=== PATIENT | male | born 1930 | race Caucasian/White ===

== ENCOUNTER 2017-03-17 02:39 | Inpatient (IN) | payer MEDICARE, BC ==
[2017-03-17] MEDS ORDERED: Albuterol Sulfate 2.5 mg/3 ml Neb ONE (03:27)
[2017-03-17] MEDS ORDERED: Doxycycline 100 MG CAP PO SCH (03:45)
[2017-03-17 04:19] LABS: Troponin I 0.034 ng/mL (< 0.028)
[2017-03-17 07:49] LABS: Troponin I Less than 0.010 ng/mL (< 0.028)
[2017-03-17] MEDS ORDERED: Ondansetron ODT 4 MG TAB PO PRN (08:23)
[2017-03-17] MEDS ORDERED: Ondansetron HCl/PF 4 MG/2 ML Vial IVP PRN (08:23)
[2017-03-17] MEDS ORDERED: Bisacodyl 5 MG TAB PO PRN (08:23)
[2017-03-17] MEDS ORDERED: Carbidopa/Levodopa 25-100 mg Tablet PO SCH (09:00)
--- NOTE | 2017-03-17 11:07 | HP ---
PRIMARY CARE PHYSICIAN: Niles Irizarry M.D. PRIMARY ASSET ANALYST: Seymour Milner M.D. PRIMARY BORDER PATROL AGENT: Cas Win M.D. CHIEF COMPLAINT: Coughing, wheezing, shortness of breath. HISTORY OF PRESENT ILLNESS: This is an 87-year-old man with a history of COPD and asthma, who takes nebs daily. He reports that 5 days ago he developed a runny nose followed by dry cough, congestion , and shortness of breath and wheezing. He continues to take his breathing treatments. He did go t o the emergency room and was given some antibiotics and steroids. The patient continued to worsen a nd returned to the emergency room with severe wheezing and increased work of breathing and mild hypo emily down to 91% on room air. The patient was given steroids, Rocephin and IV steroids and nebulizin g treatment in the [facility] and he was transferred here for admission. Here, the pat ient received doxycycline and continued nebulizing treatments. He reports feeling better, but still with significant difficulty breathing, wheezing and coughing. The patient denies any chest pain or other associated symptoms. The patient did have a chest x-ray done in the [facility] with some question of a small pleural effusion and the possibility of pneumonia was raised; however, he has a normal white blood cell count and on radiology overread of the chest x-ray shows no change s, no obvious pleural effusion, some question of possible atelectasis in the left base, but this is chronic. PAST MEDICAL HISTORY: 1. Atrial fibrillation on Xarelto. 2. Hypertension. 3. Dyslipidemia. 4. Coronary artery disease. 5. Diabetes mellitus type 2. 6. COPD/asthma. 7. Vertigo. 8. Gastroesophageal reflux disease. PAST SURGICAL HISTORY: 1. Arthroscopic left knee surgery. 2. Right ear drum implant. 3. Rhinoplasty. 4. Pacemaker placement. 5. Cholecystectomy. SOCIAL HISTORY: The patient lives with his in [place]. He has no history of tobacco, alcohol or illicit drug use. FAMILY HISTORY: Negative for coronary artery disease or stroke in the family. ALLERGIES: 1. CELEBREX. 2. PEANUT. 3. SOY. CURRENT MEDICATIONS: 1. Amlodipine 5 mg daily. 2. Metoprolol 50 mg daily. 3. Metformin 500 mg daily. 4. Protonix 40 mg daily. 5. Xarelto 20 mg daily. 6. Multaq 400 mg twice a day. 7. Zetia 5 mg daily. 8. Aspirin 81 mg daily. 9. Livalo 2 mg daily. 10. Duloxetine 60 mg daily. 11. Symbicort 160/4.5 mcg 1 inhalation in the morning and at night. 12. Albuterol as needed. 13. Lubricant eyedrops 0.5% solution as needed. 14. Gummy multivitamins 2 each night. 15. Probiotic gummy 2 each morning. 16. Rytary 23.75/95 mg 3 capsules 3 times a day. REVIEW OF SYSTEMS: Constitutional: No fevers, no chills, no weight changes. Eyes: No double visi on or blurred vision. ENT: Clear drainage from the nose with nasal congestion, no sore throat. Ca rdiovascular: No chest pain, no palpitations, no racing heart. Pulmonary: See HPI. Gastrointest inal: No abdominal pain, no nausea or vomiting, no diarrhea or constipation. Genitourinary: No dy suria or hematuria. Musculoskeletal: No muscle aches or joint pains. Skin: No rashes or lesions that he has noticed. Neurologic: No numbness, tingling or focal weakness. PHYSICAL EXAMINATION: VITAL SIGNS: Blood pressure 158/84, pulse 82, respirations 22, temperature 97.5, O2 sat 96% on 2 li ters of oxygen. GENERAL: This is a well-developed, well-nourished elderly white male in no apparent distress. HEENT: Pupils equal, round, and reactive to light. Oropharynx clear without lesions, erythema or e xudate. NECK: Supple, no lymphadenopathy, no thyroid nodules or enlargement, no JVD. HEART: Regular rate and rhythm, no murmurs, rubs or gallops. LUNGS: Diffuse expiratory wheezes with mild increased work of breathing and significant dry cough, no focal areas of decreased breath sounds or rhonchi or other evidence of pneumonia. ABDOMEN: Nontender, nondistended, normoactive bowel sounds, no hepatosplenomegaly or other masses. It is soft to palpation. EXTREMITIES: No clubbing, cyanosis or edema. SKIN: No rashes or other lesions noted. NEUROLOGIC: The patient does have a bit of a resting tremor. He has intact strength in all extremi ties and has no facial droop. PSYCHIATRIC: Alert and oriented x3, normal mood and affect, normal insight and judgment. LABORATORY DATA: CBC within normal limits with no leukocytosis. Complete metabolic panel is within normal limits except for glucose of 147. His initial CK-MB was elevated at 7.6, troponin was daly l. A repeat troponin was 0.034, but the third troponin was again negative. Lactic acid normal at 2 .0. Chest x-ray: I did review the chest x-ray done in the emergency room along with the radiologis t's report. There is no significant change from previous chest x-ray. There is some minimal left b asilar streaking consistent with atelectasis. No significant evidence for effusion or pneumonia at this time. EKG: I did review the EKG done in the emergency room, it does show sequential or dual c hamber electronic pacer signal with no significant abnormalities. ASSESSMENT AND PLAN: 1. Chronic obstructive pulmonary disease exacerbation. We will continue IV steroids, doxycycline a nd neb treatments scheduled with p.r.n. in between. I suspect the patient will need to be hospitali zed for at least two midnights to get the chronic obstructive pulmonary disease under control, so we are putting him inpatient status. The patient does not appear to have a pneumonia at this time, so we will discontinue the Rocephin. 2. Hypertension. We will resume the patient's home medications. 3. History of coronary artery disease. Patient did have a single indeterminate troponin that resol ves the second time. No symptoms consistent with current coronary artery disease or active coronary artery disease. We will just continue his home cholesterol and blood thinner medications. 4. Atrial fibrillation with a pacemaker. We will continue Xarelto. 4. Gastrointestinal prophylaxis with history of gastroesophageal reflux disease. We will resume july sandoval's Protonix. 5. Parkinson's disease. We will resume patient's levodopa and carbidopa. 6. Code status. I did discuss with the patient, he is a FULL CODE. Should he be incapacitated, hi s medical decision maker will be his , Elba Peñaloza.
[2017-03-17 12:09] VITALS: BMI 29.8
[2017-03-17] MEDS: Amlodipine 5 MG TAB PO SCH (12:47)
[2017-03-17] MEDS: Carbidopa/Levodopa 25-100 mg Tablet PO SCH ×3 (12:47→22:18)
[2017-03-17] MEDS: Docusate 100 MG CAP PO SCH ×2 (12:47→22:12)
[2017-03-17] MEDS ORDERED: Albuterol Sulfate 2.5 mg/3 ml Neb NEB SCH (13:00)
[2017-03-17] MEDS: Dronedarone HCl 400 MG TAB PO SCH (17:05)
[2017-03-17] MEDS: Rivaroxaban 10 MG TAB PO SCH (17:06)
[2017-03-17] MEDS ORDERED: Furosemide 40 MG/4 ML VIAL SLOW IVP SCH (18:30)
[2017-03-17] MEDS ORDERED: HumaLOG 300 UNITS/3 ML VIAL SC PRN (19:47)
[2017-03-17] MEDS ORDERED: Dextrose 5% in Water 1,000 ML IV PRN (19:47)
[2017-03-17] MEDS ORDERED: Dextrose 50% Abboject 50 ML SYRINGE IVP PRN (19:47)
[2017-03-17] MEDS: Doxycycline 100 MG CAP PO SCH (22:11)
[2017-03-17] MEDS: Ezetimibe 10 MG TAB PO SCH (22:12)
[2017-03-17] MEDS: Atorvastatin Calcium 10 MG TAB PO SCH (22:13)
[2017-03-17] MEDS: DULoxetine 60 MG CAP PO SCH (22:14)
[2017-03-18 05:09] LABS: #Lymphocytes 0.8 thou/uL (1.20-3.40); #Monocytes 0.7 thou/uL (0.11-0.59); #Neutrophils 6.7 thou/uL (1.40-6.50); %Eosinophils 0.2 % (0.0-10.0); %Lymphocytes 9.8 % (21.0-51.0); %Monocytes 8.3 % (0.0-10.0); Hematocrit 41.3 % (42.0-52.0); Mean Platelet Volume 7.3 fL (7.4-10.4); White Blood Cell (WBC) Count 8.2 thou/uL (4.8-10.8)
[2017-03-18 05:34] LABS: Anion Gap 14 mmol/L (10-20); BUN (Urea Nitrogen) 14 mg/dL (8.4-25.7); Calc. Creatinine Clearance 93 mL/min (70-130); Calcium 9.1 mg/dL (7.8-10.44); Carbon Dioxide 25 mmol/L (23-31); Chloride 99 mmol/L (98-107); Estimated GFR-MDRD Greater than 90
--- NOTE | 2017-03-18 08:09 | PDOC.PN ---
- Subjective Encounter Start Date: 03/18/17 Encounter Start Time: 08:40 Subjective: SOB improved, cough better. Still on a little O2. - Objective Resuscitation Status: Resuscitation Status FULL:Full Resuscitation MAR Reviewed: Yes Vital Signs & Weight: Vital Signs (12 hours) Temp Pulse Resp BP Pulse Ox 03/18/17 07:28 95 03/18/17 07:26 76 20 95 03/18/17 04:00 97.9 F 83 20 133/62 93 L 03/18/17 01:15 83 16 97 03/18/17 00:35 96 03/18/17 00:00 97.3 F L 84 18 127/59 L 95 03/17/17 22:02 97.8 F 94 20 122/64 95 Weight Weight 188 lb 6.4 oz I&O: 03/17/17 03/18/17 03/19/17 06:59 06:59 06:59 Intake Total 1210 Output Total 0 Balance -840 Result Diagrams: 03/18/17 04:54 03/18/17 04:54 Additional Labs: Accuchecks 03/18/17 03/17/17 03/17/17 06:11 22:09 20:54 POC Glucose 183 H 281 H 323 H Phys Exam - Physical Examination Constitutional: NAD HEENT: moist MMs Respiratory: no rales, no rhonchi wheezing improved, still some bilateral upper lobes, good air movement Cardiovascular: RRR, no significant murmur Gastrointestinal: soft, positive bowel sounds Musculoskeletal: no edema Neurological: non-focal, moves all 4 limbs Psychiatric: normal affect, A&O x 3 Dx/Plan (1) COPD exacerbation Code(s): J44.1 - CHRONIC OBSTRUCTIVE PULMONARY DISEASE W (ACUTE) EXACERBATION Status: Acute Comment: On nebs, steroids, antibiotics (2) CAD (coronary artery disease) Code(s): I25.10 - ATHSCL HEART DISEASE OF [place] CORONARY ARTERY W/O ANG PCTRS Status: Chronic (3) Chronic atrial fibrillation Code(s): I48.2 - CHRONIC ATRIAL FIBRILLATION Status: Chronic Comment: continue xarelto (4) Dyslipidemia Code(s): E78.5 - HYPERLIPIDEMIA, UNSPECIFIED Status: Chronic (5) Hypertension Code(s): I10 - ESSENTIAL (PRIMARY) HYPERTENSION Status: Chronic Comment: controlled - Plan cont current plan of care, continue antibiotics, respiratory therapy, out of bed /ambulate, DVT proph w/lovenox, DVT proph w/SCDs transition to oral steroids, try and wean O2, likely home tomorrow. * . - Discharge Encounter end time: 08:55
[2017-03-18] MEDS: Dronedarone HCl 400 MG TAB PO SCH ×2 (08:24→15:52)
[2017-03-18] MEDS: metFORMIN 500 MG TAB PO SCH (08:24)
[2017-03-18] MEDS: Docusate 100 MG CAP PO SCH ×2 (08:28→20:31)
[2017-03-18] MEDS: Amlodipine 5 MG TAB PO SCH (08:28)
[2017-03-18] MEDS: Carbidopa/Levodopa 25-100 mg Tablet PO SCH ×3 (08:28→20:31)
[2017-03-18] MEDS: Doxycycline 100 MG CAP PO SCH ×2 (08:28→20:31)
[2017-03-18] MEDS: predniSONE 20 MG TAB PO SCH (08:28)
[2017-03-18] MEDS: Rivaroxaban 10 MG TAB PO SCH (17:49)
[2017-03-18] MEDS: HumaLOG 300 UNITS/3 ML VIAL SC PRN (17:49)
[2017-03-18] MEDS: Atorvastatin Calcium 10 MG TAB PO SCH (20:31)
[2017-03-18] MEDS: Ezetimibe 10 MG TAB PO SCH (20:31)
[2017-03-18] MEDS: DULoxetine 60 MG CAP PO SCH (20:31)
[2017-03-19] MEDS: Dronedarone HCl 400 MG TAB PO SCH ×2 (08:24→17:43)
[2017-03-19] MEDS: Amlodipine 5 MG TAB PO SCH ×2 (08:24→09:47)
[2017-03-19] MEDS: Doxycycline 100 MG CAP PO SCH ×2 (08:24→21:04)
[2017-03-19] MEDS: Carbidopa/Levodopa 25-100 mg Tablet PO SCH (08:24)
[2017-03-19] MEDS: metFORMIN 500 MG TAB PO SCH (08:24)
[2017-03-19] MEDS: Docusate 100 MG CAP PO SCH ×2 (08:24→21:04)
[2017-03-19] MEDS: predniSONE 20 MG TAB PO SCH (08:24)
[2017-03-19] MEDS ORDERED: CARBOXYMETHYLCELLULOSE SODIUM EA EYE PRN (08:28)
[2017-03-19 08:57] LABS: #Eosinphils 0.1 thou/uL (0.0-0.7); #Lymphocytes 1.5 thou/uL (1.20-3.40); #Monocytes 0.7 thou/uL (0.11-0.59); #Neutrophils 4.1 thou/uL (1.40-6.50); %Basophils 0.3 % (0.0-1.0); %Eosinophils 1.2 % (0.0-10.0); %Lymphocytes 23.8 % (21.0-51.0); %Monocytes 10.6 % (0.0-10.0); Hematocrit 46.8 % (42.0-52.0); Mean Platelet Volume 7.3 fL (7.4-10.4); Red Blood Cell (RBC) Count 4.72 mill/uL (4.70-6.10); White Blood Cell (WBC) Count 6.4 thou/uL (4.8-10.8)
[2017-03-19] MEDS ORDERED: Artificial Tears 18 DROP/0.9 ML EA EYE PRN (08:57)
[2017-03-19] MEDS ORDERED: (Inulin/Chromium Picolinate [Fiber Gummies] 1 EACH) PO SCH (09:00)
[2017-03-19] MEDS ORDERED: Non-Formulary Item 1 EACH (Pitavastatin Calcium 2 MG) PO SCH (09:00)
[2017-03-19] MEDS ORDERED: Benzonatate 100 MG CAP PO PRN (09:00)
[2017-03-19] MEDS ORDERED: Non-Formulary Item 1 EACH (Budesonide-Formoterol [Symbicort 160-4.5] 1 PUFF) INH SCH (09:00)
[2017-03-19 09:08] LABS: Anion Gap 12 mmol/L (10-20); BUN (Urea Nitrogen) 16 mg/dL (8.4-25.7); Calc. Creatinine Clearance 92 mL/min (70-130); Calcium 9.4 mg/dL (7.8-10.44); Carbon Dioxide 29 mmol/L (23-31); Chloride 99 mmol/L (98-107); Estimated GFR-MDRD Greater than 90
[2017-03-19] MEDS: HumaLOG 300 UNITS/3 ML VIAL SC PRN ×2 (12:21→17:45)
--- NOTE | 2017-03-19 13:21 | HP ---
DATE OF SERVICE: 03/18/2017 SERVICE: Pulmonary Medicine. INTERVAL HISTORY: The patient is doing outstanding from cardiovascular and respiratory standpoint. His breathing is much improved with a couple doses of Lasix. He now understands that he cannot have salt moving and his previous doses moving forward. PAST MEDICAL HISTORY: 1. Atrial fibrillation, permanent. 2. Hypertension. 3. Dyslipidemia. 4. Coronary artery disease. 5. Type 2 diabetes mellitus. 6. Chronic obstructive pulmonary disease. 7. Gastroesophageal reflux disease. 8. Parkinson's disease. PAST SURGICAL HISTORY: 1. Left knee surgery. 2. Right eardrum surgery. 3. Rhinoplasty. 4. Pacemaker placement. 5. Cholecystectomy. SOCIAL HISTORY: Negative for tobacco, alcohol or illicit drug use. He has no exposure to chemicals, dusts, asbestos, or tuberculosis. He lives with his in [place]. FAMILY HISTORY: Noncontributory. ALLERGIES: CELEBREX, PEANUT, SOY. MEDICATIONS: List of inpatient medications were reviewed. A couple of small updates were made at this time. REVIEW OF SYSTEMS: General, head, ears, eyes, nose, throat, cardiovascular, respiratory, GI, , musculoskeletal, neurologic and skin is negative except as mentioned in the HPI. PHYSICAL EXAMINATION: VITAL SIGNS: Afebrile, pulse 81, blood pressure 165/74, respirations 20, saturation 95% on 2 liters nasal cannula. GENERAL: The patient is awake, alert, no apparent distress. LUNGS: Excellent air entry. Dependent crackles are minimal. There is not much in the way of a prolonged expiratory phase or wheezing this morning. HEART: Normal rate, regular. ABDOMEN: Soft, nontender, nondistended. Bowel sounds positive. MUSCULOSKELETAL: No cyanosis or clubbing. No pitting in the bilateral lower extremities. NEUROLOGIC: Grossly nonfocal. LABORATORY DATA: WBC 8.2, hemoglobin 13.4, platelets 167,000. Neutrophil count is 82%. Basic metabolic profile is completely unremarkable. Glucose ranges from 155-229. ASSESSMENT: 1. Acute hypoxic respiratory failure. 2. Chronic obstructive pulmonary disease with acute exacerbation. 3. 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 4. Excessive salt intake. 5. Parkinson's disease. PLAN: We will focus our efforts on mobilizing the patient. We will wean oxygen as tolerated. He will need to stop salt moving forward. We will continue our antibiotics, steroids, nebulized medications. If he remains stable for an additional 24-48 hours, he can be considered for discharge home. I will continue to follow while he remains in house. AYAAN
[2017-03-19] MEDS ORDERED: Furosemide 40 MG/4 ML VIAL SLOW IVP SCH (14:00)
--- NOTE | 2017-03-19 14:07 | PRG ---
DATE OF SERVICE: 03/19/2017 SERVICE: Pulmonary Medicine. INTERVAL HISTORY: The patient is doing really quite well from a cardiovascular and respiratory stand point. He is on room air now. He denies any current fevers, chills, nausea, vomiting or chest disco mfort. His breathing much improved. He is up walking in the hallway today without difficulty. He e ssentially feels like he has returned to his usual state of health. PHYSICAL EXAMINATION: VITAL SIGNS: Afebrile, pulse 84, blood pressure 165/77, respirations 18, saturation 93% on room air. GENERAL: Patient is awake, alert, in no apparent distress. LUNGS: Excellent air entry. Minimal dependent crackles are present. There is slightly prolonged ex piratory phase, but there is now excellent air entry. No wheezing is appreciated. HEART: Normal rate and regular. ABDOMEN: Soft, nontender, and nondistended. Bowel sounds positive. MUSCULOSKELETAL: No cyanosis or clubbing. Trace pitting in the bilateral lower extremities. NEUROLOGIC: Grossly nonfocal. LABORATORY DATA: WBC 6.4, hemoglobin 14.8, and platelets 177,000. Basic metabolic profile is essent ially unremarkable with potassium of 3.8. ASSESSMENT: 1. Acute hypoxic respiratory failure, resolved. 2. 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 3. Atrial fibrillation, permanent. 4. Chronic obstructive pulmonary disease with acute exacerbation. 5. Excessive salt intake. 6. Parkinson's disease. PLAN: I will continue to diurese the patient to euvolemia. The patient's has requested Cardiol clarissa consultation. As such, I will put that in. From my perspective, if he is stable by tomorrow higinio joya and off of oxygen, he can be considered for transition home. I will provide him with another do se of Lasix in the morning. We will repeat electrolytes once again. He had a recent echocardiogram, I do not see a point repeating one given that he had negative troponin.
--- NOTE | 2017-03-19 14:08 | PDOC.PN ---
- Subjective Encounter Start Date: 03/19/17 Encounter Start Time: 07:40 Pt seen for followup re: COPD exacerbation. Denies chest pain, fever. Occ cough, minimal sputum. Shortness of breath is better. - Objective Resuscitation Status: Resuscitation Status FULL:Full Resuscitation MAR Reviewed: Yes Vital Signs & Weight: Vital Signs (12 hours) Temp Pulse Pulse Pulse Pulse Resp BP 03/19/17 11:50 97.2 F L 84 18 03/19/17 11:42 87 85 75 165/77 H 03/19/17 08:40 59 L 86 149/81 H 03/19/17 08:00 97.7 F 92 18 03/19/17 07:50 97.7 F 92 18 03/19/17 07:14 03/19/17 07:13 72 16 03/19/17 04:44 03/19/17 04:10 97.8 F 73 18 BP BP BP Pulse Ox Pulse Ox Pulse Ox Pulse Ox 03/19/17 11:50 125/64 93 L 03/19/17 11:42 125/64 95 95 92 L 03/19/17 08:40 149/76 H 03/19/17 08:00 92 L 03/19/17 07:50 127/68 92 L 03/19/17 07:14 96 03/19/17 07:13 95 03/19/17 04:44 95 03/19/17 04:10 147/76 H 95 Weight Weight 189 lb 4.8 oz I&O: 03/18/17 03/19/17 03/20/17 06:59 06:59 06:59 Intake Total 1210 2400 Output Total 2050 2560 Balance -840 -160 Result Diagrams: 03/19/17 08:36 03/19/17 08:36 Additional Labs: Accuchecks 03/19/17 03/19/17 03/18/17 12:04 05:25 20:28 POC Glucose 229 H 155 H 152 H 03/18/17 16:48 POC Glucose 221 H EKG Reviewed by me: Yes (Tele: electronic AV paced) Phys Exam - Physical Examination Constitutional: NAD HEENT: moist MMs, oral pharynx no lesions Neck: supple Respiratory: wheezing present Cardiovascular: RRR, no rub Gastrointestinal: soft, non-tender Musculoskeletal: pulses present, edema present Neurological: moves all 4 limbs Psychiatric: normal affect Skin: no rash Dx/Plan (1) COPD exacerbation Code(s): J44.1 - CHRONIC OBSTRUCTIVE PULMONARY DISEASE W (ACUTE) EXACERBATION Status: Acute (2) CAD (coronary artery disease) Code(s): I25.10 - ATHSCL HEART DISEASE OF [place] CORONARY ARTERY W/O ANG PCTRS Status: Chronic (3) Chronic atrial fibrillation Code(s): I48.2 - CHRONIC ATRIAL FIBRILLATION Status: Chronic (4) Dyslipidemia Code(s): E78.5 - HYPERLIPIDEMIA, UNSPECIFIED Status: Chronic (5) H/O: CVA (cerebrovascular accident) Code(s): Z86.73 - PRSNL HX OF TIA (TIA), AND CEREB INFRC W/O RESID DEFICITS Status: Chronic (6) Hypertension Code(s): I10 - ESSENTIAL (PRIMARY) HYPERTENSION Status: Chronic - Plan plan discussed w/ family, continue antibiotics, PT/OT, out of bed/ambulate, DVT proph w/SCDs * . Continue steroids, bronchodilators. Pt still needing oxygen, will try to wean him off. Resume metoprolol. Discussed with pt and family, updated them. Likely home 1-2 days. Review of Systems - Review of Systems Constitutional: negative: Fever, Chills, Sweats, Weakness, Malaise Respiratory: Cough, Shortness of Breath, SOB with Excertion, Sputum. negative: Dry, Hemoptysis, Pleuritic Pain, Wheezing Cardiovascular: negative: Chest Pain, Palpitations, Orthopnea, Paroxysmal Noc. Dyspnea, Edema, Light Headedness - Medications/Allergies Allergies/Adverse Reactions: Allergies Allergy/AdvReac Type Severity Reaction Status Date / Time celecoxib [From Celebrex] Allergy Verified 03/17/17 12:13 peanut Allergy Verified 03/17/17 12:13 soy Allergy Verified 03/17/17 12:13 Medications: Current Medications Albuterol/Ipratropium (Duoneb) 3 ml NEB [id number] PRN PRN Reason: SOB &/or Wheezing Albuterol/Ipratropium (Duoneb) 3 ml NEB [id number] VIPUL Last Admin: 03/19/17 07:13 Dose: 3 ml Amlodipine Besylate (Norvasc) 5 mg PO DAILY VIPUL Last Admin: 03/19/17 09:47 Dose: Not Given Artificial Tears (Tears Naturale) 0 drop EA EYE ASDIR PRN PRN Reason: DRY EYES Aspirin (Aspirin Chewable) 81 mg PO HS [facility] Atorvastatin Calcium (Lipitor) 10 mg PO HS [facility] Last Admin: 03/18/17 20:31 Dose: 10 mg Bisacodyl (Dulcolax) 10 mg PO DAILYPRN PRN PRN Reason: Constipation Dextrose/Water (Dextrose 50%) 25 gm IVP PRN PRN PRN Reason: HYPOGLYCEMIA PROTOCOL Docusate Sodium (Colace) 100 mg PO BID [facility] Last Admin: 03/19/17 08:24 Dose: 100 mg Doxycycline Hyclate (Vibramycin) 100 mg PO BID [facility] Last Admin: 03/19/17 08:24 Dose: 100 mg Dronedarone (Multaq) 400 mg PO BID-WM [facility] Duloxetine HCl (Cymbalta) 60 mg PO HS [facility] Ezetimibe (Zetia) 5 mg PO HS [facility] Furosemide (Lasix) 40 mg SLOW IVP 1400 VIPUL Stop: 03/19/17 17:00 Furosemide (Lasix) 40 mg PO DAILY-AC [facility] Glucagon (Glucagon) 1 mg IM PRN PRN PRN Reason: HYPOGLYCEMIA PROTOCOL Dextrose/Water (D5w) 1,000 mls @ 0 mls/hr IV INF PRN; As Directed PRN Reason: HYPOGLYCEMIA PROTOCOL Insulin Human Lispro (Humalog) 0 units SC .MODERATE SLIDING SC PRN; Protocol PRN Reason: MODERATE SLIDING SCALE Last Admin: 03/19/17 12:21 Dose: 4 unit Insulin Human Lispro (Humalog) 0 units SC .BEDTIME SLIDING SC PRN; Protocol PRN Reason: BEDTIME SLIDING SCALE Last Admin: 03/17/17 22:10 Dose: 3 unit Iron/Minerals/Multivitamins (Theragran M) 1 tab PO HS [facility] Metformin HCl (Glucophage) 500 mg PO QAM-WM [facility] Metoprolol Tartrate (Lopressor) 50 mg PO QPM [facility] Mometasone Furoate/Formoterol Fumar (Dulera 200 Mcg/5 Mcg Inhaler) 1 puff INH BID-RT [facility] Ondansetron HCl (Zofran Odt) 4 mg PO Q6H PRN PRN Reason: Nausea/Vomiting Ondansetron HCl (Zofran) 4 mg IVP Q6H PRN PRN Reason: Nausea/Vomiting Pantoprazole Sodium (Protonix) 40 mg PO DAILY [facility] Last Admin: 03/19/17 09:52 Dose: 40 mg (Carbidopa/Levodopa [Rytary Er] 1 Capsule) 23.75/95 0 each PO TID [facility] Prednisone (Prednisone) 40 mg PO QAM-[facility] Stop: 03/22/17 08:01 Last Admin: 03/19/17 08:24 Dose: 40 mg Rivaroxaban (Xarelto) 20 mg PO QPM-[facility] Sodium Chloride (Flush - Normal Saline) 10 ml IVF Q12HR [facility] Last Admin: 03/19/17 08:25 Dose: 10 ml Sodium Chloride (Flush - Normal Saline) 10 ml IVF PRN PRN PRN Reason: Saline Flush
[2017-03-19] MEDS: CARBIDOPA PO SCH ×2 (14:28→21:13)
[2017-03-19] MEDS: LEVODOPA PO SCH ×2 (14:28→21:13)
[2017-03-19] MEDS ORDERED: Non-Formulary Item 1 EACH (Rivaroxaban [Xarelto] 20 MG) PO SCH (17:00)
[2017-03-19] MEDS ORDERED: Rivaroxaban 10 MG TAB PO SCH (17:00)
--- NOTE | 2017-03-19 18:08 | CON ---
DATE OF CONSULTATION: 03/19/2017 REASON FOR CONSULTATION: Diastolic dysfunction and atrial fibrillation. PRIMARY EDUCATION TEACHER: Dr. Seymour Milner M.D. HISTORY OF PRESENT ILLNESS: Mr. Peñaloza is a very pleasant 87-year-old white gentleman, who comes to the hospital for shortness of breath. He was evaluated and diagnosed with COPD exacerbation and was started on steroids, he is doing much better. He also had a little bit of pulmonary edema and receiv ed IV doses of Lasix and diuresed and his breathing is much better now. Cardiology being consulted f or evaluation of heart failure. He had an echocardiogram done in the office by Dr. Milner in [facility] this year. He had an EF of 50% to 55% with diastolic dysfunction. He also has a history of pa roxysmal atrial fibrillation. He is on Multaq for this as well as Xarelto for stroke prophylaxis. Ruy benton is currently in AV paced rhythm, so he is not in atrial fibrillation. PAST MEDICAL HISTORY: 1. Paroxysmal atrial fibrillation. 2. Hypertension. 3. Hyperlipidemia. 4. Coronary artery disease, status post angioplasty in the . 5. LAD. 6. Type 2 diabetes. 7. COPD. 8. Vertigo. 9. GERD. 10. Diastolic dysfunction. PAST SURGICAL HISTORY: 1. Left knee surgery. 2. Right eardrum implant. 3. Rhinoplasty. 4. Pacemaker placed. 5. Cholecystectomy. SOCIAL HISTORY: No alcohol, tobacco, or drugs. FAMILY HISTORY: Noncontributory. ALLERGIES: CELEBREX, PEANUT and SOY. OUTPATIENT MEDICATIONS: Include, 1. Amlodipine 5 mg a day. 2. Metoprolol 50 mg a day. 3. Metformin 500 mg a day. 4. Protonix. 5. Xarelto 20 mg a day. 6. Multaq 400 mg twice a day. 7. Zetia 5 mg a day. 8. Aspirin 81 a day. 9. Livalo 2 mg a day 10. Duloxetine. 11. Symbicort. 12. Albuterol. 13. Lubricant eye drops. 14. Multivitamins. 15. Probiotics. 16. Rytary. REVIEW OF SYSTEMS: A 12-point review of systems was done and is all negative unless stated in the hi story of present illness. PHYSICAL EXAMINATION: VITAL SIGNS: Temperature 97.2, pulse 84, respiratory rate 18, satting 92% on room air, and blood pre ssure 125/64. GENERAL: Awake, alert, oriented x3, in no distress. HEENT: Normocephalic, atraumatic. NECK: Supple. LUNGS: Have reduced breath sounds bilaterally, but good air movement. CARDIOVASCULAR: S1 and S2. No S3 or S4. No murmurs. No rubs. ABDOMEN: Soft. EXTREMITIES: Trace edema. SKIN: Warm and dry. LABORATORY WORK: Reviewed. CBC with a white count of 8, hemoglobin 13, hematocrit 41, and platelet count of 167. Chemistry with a normal BUN and creatinine. Calcium 9.4. Troponin was negative x2. EKG was reviewed. ASSESSMENT AND PLAN: 1. Chronic obstructive pulmonary disease with acute exacerbation. 2. Acute diastolic heart failure, improved after IV diuresis. 3. Paroxysmal atrial fibrillation, currently in AV paced rhythm. PLAN: 1. Continue Multaq and Xarelto for both paroxysmal atrial fibrillation and stroke prophylaxis. Curr ently, not in atrial fibrillation. 2. Agree with switching his Lasix to p.o. as he probably has already diuresed and is feeling much be tter from his fluid accumulation from his diastolic dysfunction. 3. Other medications per primary team. Thank you for letting us to participate in the care of your patient. We will follow.
[2017-03-19] MEDS: Mometasone/Formoterol 120 PUFF INHALER INH SCH (19:02)
[2017-03-19] MEDS ORDERED: Ezetimibe 10 MG TAB PO SCH (21:00)
[2017-03-19] MEDS ORDERED: Metoprolol Tartrate 50 MG TAB PO SCH (21:00)
[2017-03-19] MEDS ORDERED: DULoxetine 60 MG CAP PO SCH (21:00)
[2017-03-19] MEDS ORDERED: Multivitamin W/ Minerals 1 TAB PO SCH (21:00)
[2017-03-19] MEDS: Atorvastatin Calcium 10 MG TAB PO SCH (21:05)
[2017-03-20 05:32] LABS: #Eosinphils 0.1 thou/uL (0.0-0.7); #Lymphocytes 1.5 thou/uL (1.20-3.40); #Monocytes 0.7 thou/uL (0.11-0.59); #Neutrophils 4.8 thou/uL (1.40-6.50); %Basophils 0.4 % (0.0-1.0); %Eosinophils 1.3 % (0.0-10.0); %Monocytes 10.4 % (0.0-10.0); Hematocrit 44.8 % (42.0-52.0); Mean Platelet Volume 7.1 fL (7.4-10.4); Red Blood Cell (RBC) Count 4.51 mill/uL (4.70-6.10); White Blood Cell (WBC) Count 7.1 thou/uL (4.8-10.8)
[2017-03-20 05:44] LABS: Anion Gap 9 mmol/L (10-20); BUN (Urea Nitrogen) 16 mg/dL (8.4-25.7); Calc. Creatinine Clearance 95 mL/min (70-130); Calcium 8.9 mg/dL (7.8-10.44); Carbon Dioxide 29 mmol/L (23-31); Chloride 98 mmol/L (98-107); Estimated GFR-MDRD Greater than 90
[2017-03-20] MEDS ORDERED: Furosemide 40 MG TAB PO SCH (07:30)
[2017-03-20] MEDS ORDERED: metFORMIN 500 MG TAB PO SCH (08:00)
[2017-03-20] MEDS: Dronedarone HCl 400 MG TAB PO SCH (09:01)
[2017-03-20] MEDS: Amlodipine 5 MG TAB PO SCH (09:02)
[2017-03-20] MEDS: Doxycycline 100 MG CAP PO SCH (09:02)
[2017-03-20] MEDS: predniSONE 20 MG TAB PO SCH (09:02)
[2017-03-20] MEDS: Docusate 100 MG CAP PO SCH (09:02)
[2017-03-20] MEDS: LEVODOPA PO SCH (09:03)
[2017-03-20] MEDS: CARBIDOPA PO SCH (09:03)
[2017-03-20] MEDS: Mometasone/Formoterol 120 PUFF INHALER INH SCH (09:38)
--- NOTE | 2017-03-20 11:54 | PDOC.CTH ---
Cardiology Progress Note - Subjective He is doing much better today. His breathing is at baseline. He wants to go home. - Objective Vital Signs Temp Pulse Resp BP Pulse Ox 03/20/17 09:38 63 12 03/20/17 09:27 94 L 03/20/17 09:26 63 12 03/20/17 08:00 97.5 F L 63 12 91 L 03/20/17 07:25 97.5 F L 62 20 119/63 91 L 03/20/17 04:00 97.5 F L 75 20 123/69 93 L 03/20/17 00:20 84 16 Weight 188 lb 14.4 oz 03/19/17 03/20/17 03/21/17 06:59 06:59 06:59 Intake Total 2400 2640 Output Total 2560 2980 Balance -160 -340 - Physical Examination General/Neuro: alert & oriented x3 Neck: no JVD present Lungs: unlabored respirations, other: (Reduced breath sounds bilat. ) Heart: RRR Abdomen: NT/ND Extremities: + edema B (trace) - Telemetry Telemetry Rhythm: AV paced. - Labs Result Diagrams: 03/20/17 05:14 03/20/17 05:14 Troponin/CKMB Troponin I Less than 0.010 ng/mL (< 0.028) 03/17/17 07:13 - Assessment/Plan 1. Acute diastolic heart failure. 2. COPD. 3. Paroxysmal afib, currently AV paced. PLAN: - Back to baseline from cardiac perspective. - May discharge home at any time. - Will sign off. he will follow up with Dr. Milner as previously scheduled. - Please call with any questions.
[2017-03-20 12:26] VITALS: BP 134/68; TEMP 97.7
--- NOTE | 2017-03-20 14:53 | PRG ---
DATE OF SERVICE: 03/20/2017 SERVICE: Pulmonary Medicine. INTERVAL HISTORY: The patient is doing really well from a respiratory standpoint. He is breathing c omfortably. He has no complaints of fevers, chills, nausea, vomiting or diarrhea. Cardiology saw th e patient yesterday and have recommended medical management for his heart. I do think it is reasonab le for him to go home on p.r.n. Lasix. We talked about this and we will see if we can facilitate it. PHYSICAL EXAMINATION: VITAL SIGNS: Afebrile, pulse 90, blood pressure 134/68, respirations 17, saturation 92% on room air. GENERAL: The patient is awake, alert, in no apparent distress. LUNGS: Excellent air entry. No prolonged expiratory phase or wheezing. HEART: Normal rate, regular. ABDOMEN: Soft, nontender, nondistended. Bowel sounds positive. MUSCULOSKELETAL: No cyanosis or clubbing. No pitting in the bilateral lower extremities. NEUROLOGIC: Grossly nonfocal. LABORATORY DATA: WBC 7.1, hemoglobin 14.2, platelets 169,000. Basic metabolic profile is completely unremarkable except for sodium of 132. BNP has improved to 88.3. ASSESSMENT: 1. Acute hypoxic respiratory failure, resolved. 2. 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 3. Chronic obstructive pulmonary disease with acute exacerbation, resolved. 4. Atrial fibrillation, permanent. 5. Excessive salt intake. 6. Parkinson's disease. PLAN: From my perspective, the patient has returned to his usual state of health. As such, he is st able for transition out of the hospital. I think he should go out on a p.r.n. dose of Lasix that he uses whenever his lower extremity swelling becomes more dramatic. Steroids can be stopped after 5 da ys. Antibiotics can be stopped after a total duration of 5 days. He can follow up with Dr. Win in the outpatient setting as previously directed.
--- NOTE | 2017-03-20 21:48 | DIS ---
DATE OF ADMISSION: 03/17/2017 DATE OF DISCHARGE: 03/20/2017 PRIMARY CARE PHYSICIAN: Niles Irizarry M.D. DISCHARGE DIAGNOSES: 1. Acute hypoxic respiratory failure. 2. 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 3. Chronic obstructive pulmonary disease exacerbation. 4. Excessive salt intake. CONDITION OF PATIENT AT THE TIME OF DISCHARGE: I assessed Mr. Peñaloza on the day of discharge. He denies any chest pain or shortness of breath. PHYSICAL EXAMINATION: VITAL SIGNS: Stable, he was not needing any supplemental oxygen. HEART: S1 and S2 are heard, regular. LUNGS: Clear to auscultation bilaterally. CONSULTATIONS DURING THIS HOSPITALIZATION: Pulmonology, Dr. Lawrence and Cardiology, Dr. Polanco. DISCHARGE MEDICATIONS: Amlodipine 5 mg daily, aspirin 81 mg at bedtime, benzonatate 200 mg every 8 hours as needed, budesonide/formoterol 160/4.5 mg 1 puff 2 times a day, carbidopa/levodopa 23.75/95 mg 1 capsule 3 times a day, carboxymethylcellulose eyedrops as needed, Vibramycin 100 mg 2 times a day for 6 more days, dronedarone 400 mg 2 times a day, Cymbalta 60 mg at bedtime, ezetimibe 5 mg at bedtime, folic acid/multivitamins 200 mcg at bedtime, Lasix 40 mg daily, started during this hospitalization, potassium chloride 10 mEq daily, started during this hospitalization, ipratropium/albuterol nebulizers 3 times a day, metformin 500 mg daily, metoprolol succinate 50 mg every evening started during this hospitalization, changed from metoprolol tartrate, Protonix 40 mg daily, pitavastatin 2 mg daily, atorvastatin 2 mg daily, prednisone 40 mg daily for 2 more days, rivaroxaban 20 mg every evening. HOSPITAL COURSE: Mr. Peñaloza is a pleasant 87-year-old gentleman who was admitted to [facility] on 03/17/2017 for acute hypoxic respiratory failure secondary to CHF exacerbation as well as COPD exacerbation. He improved with diuretics, oxygen, steroids, bronchodilators, and antibiotics. He was seen by Pulmonology and Cardiology Services. He is being discharged home in a stable condition. LABORATORY DATA: On the day of discharge, he has sodium 132, potassium 3.7, creatinine 0.69, white count 7,100, hemoglobin 14.2, and platelet count 169,000. Many thanks for allowing me to participate in your patient's care. He is advised to follow up with his primary care provider in 3-5 days. His electrolytes and creatinine will need to be rechecked. He has also been advised to avoid high salt intake. DISCHARGE DESTINATION: Home. TOTAL AMOUNT OF TIME SPENT COORDINATING THIS DISCHARGE: 32 minutes. AYAAN
[2017-03-21] MEDS ORDERED: Potassium Chloride 10 MEQ TAB PO SCH (08:00)
--- NOTE | 2017-05-02 11:34 | EKG ---
Test Reason : Blood Pressure : / mmHG Vent. Rate : 080 BPM Atrial Rate : 080 BPM P-R Int : 000 ms QRS Dur : 188 ms QT Int : 476 ms P-R-T Axes : 000 -71 097 degrees QTc Int : 548 ms AV sequential or dual chamber electronic pacemaker No STEMI Confirmed by YLUI CASTRO M.D. ([id number]), staff editor MICHELET MCCLURE ([id number]) on 05/02/2017 11:33:57 AM Referred By: Confirmed By:YULI CASTRO M.D.
== END 2017-03-20 14:56 | disposition home or self-care (01) | DRG 291 ==
LOC: ERS 02:39 → ERHOLD 03:23 → 2NO 12:01
PROVIDERS: ADMIT Internal Medicine; ATTEND Internal Medicine
DX: I11.0 Hypertensive heart disease with heart failure (principal); J96.01 Acute respiratory failure with hypoxia; J44.1 Chronic obstructive pulmonary disease with (acute) exacerbation; I50.33 Acute on chronic diastolic (congestive) heart failure; G20 Parkinson's disease; Z91.11 Patient's noncompliance with dietary regimen; E78.5 Hyperlipidemia, unspecified; I25.10 Atherosclerotic heart disease of native coronary artery without angina pectoris; E11.9 Type 2 diabetes mellitus without complications; K21.9 Gastro-esophageal reflux disease without esophagitis; Z95.0 Presence of cardiac pacemaker; Z91.010 Allergy to peanuts; Z88.8 Allergy status to other drugs, medicaments and biological substances; Z91.018 Allergy to other foods; Z79.01 Long term (current) use of anticoagulants; Z79.82 Long term (current) use of aspirin; Z79.51 Long term (current) use of inhaled steroids; I48.0 Paroxysmal atrial fibrillation; Z86.73 Personal history of transient ischemic attack (TIA), and cerebral infarction without residual deficits
CPT/HCPCS: 36415; 36416; 80048; 83880; 85025; 93005; 94640; A4216; G8978-GP-CM; G8979-GP-CK; G8987-GO-CI; G8988-GO-CI; G8989-GO-CI; J1940; J2920; J7506; J7611; J7620

== ENCOUNTER 2017-03-31 20:30 | Outpatient (CLI) | payer MEDICARE, BC | END 2017-03-31 20:31 | disposition home or self-care (01) | LOC: SLEEPLAB 20:30 | PROVIDERS: ATTEND Internal Medicine | DX: G47.33 Obstructive sleep apnea (adult) (pediatric) (principal); R53.83 Other fatigue; E66.9 Obesity, unspecified; R06.83 Snoring; R35.1 Nocturia; J44.9 Chronic obstructive pulmonary disease, unspecified; I25.10 Atherosclerotic heart disease of native coronary artery without angina pectoris; E11.9 Type 2 diabetes mellitus without complications; I10 Essential (primary) hypertension; G47.10 Hypersomnia, unspecified | CPT/HCPCS: 95810 ==

== ENCOUNTER 2017-08-19 11:43 | Outpatient (CLI) | payer MEDICARE, BC ==
--- NOTE | 2017-08-19 14:46 | RAD ---
PA AND LATERAL CHEST X-RAY: 08/19/2017 HISTORY: Dyspnea. COMPARISON: 07/25/2017 FINDINGS: Dual-lead left subclavian cardiac pacemaker device is noted in place. The cardiac silhouette is at t he upper limits of normal to borderline enlarged; however, this is stable from prior exam. The pulmo nary vasculature is within normal limits. Linear scarring at the left lung base is again present. C alcified bilateral hilar and mediastinal lymph nodes are again present. The lungs are otherwise lela r. There has been no interval change from the prior exam. IMPRESSION: Stable chest without evidence of an acute cardiopulmonary process. POS: [facility]
== END 2017-08-19 11:44 | disposition home or self-care (01) ==
LOC: RAD 11:43
PROVIDERS: ATTEND Internal Medicine Critical Care Medicine
DX: R06.00 Dyspnea, unspecified (principal)
CPT/HCPCS: 71046

== ENCOUNTER 2018-10-27 08:21 | Outpatient (CLI) | payer MEDICARE, BC ==
[2018-10-27 08:48] LABS: Estimated GFR-MDRD - POC Greater than 90
--- NOTE | 2018-10-27 09:28 | CT ---
CTA Angio Chest W WO Con HISTORY: Placement of a watchman device. Evaluation for leakage. COMPARISON: None. FINDINGS: The lungs are clear of any infiltrative process. There are calcified granulomas incidentall y noted. There is no significant mediastinal or hilar lymphadenopathy. A watchman device has been placed in the left atrial appendage. In addition there is been a coiling p erformed. The coils cause considerable scan artifact but I do not see any definite signs of a leak. Visualized liver parenchyma shows no focal findings. Slight nodularity of the left adrenal gland. A p artially visualized right renal cyst is also incidentally seen. IMPRESSION: Placement of a watchman device in the left atrial appendage also with the subsequent coil ing. No signs for leak.
== END 2018-10-27 08:22 | disposition home or self-care (01) ==
LOC: BICCT 08:21
DX: I48.91 Unspecified atrial fibrillation (principal); J44.9 Chronic obstructive pulmonary disease, unspecified; R06.02 Shortness of breath; E11.9 Type 2 diabetes mellitus without complications; Z95.818 Presence of other cardiac implants and grafts
CPT/HCPCS: 71275; 82565

== ENCOUNTER 2019-03-12 13:47 | Inpatient (IN) | payer MEDICARE, BC ==
[2019-03-12] MEDS ORDERED: Ipratropium Bromide 2.5 ml Neb ONE (14:32)
[2019-03-12] MEDS ORDERED: Albuterol Sulfate 2.5 mg/3 ml Neb ONE (14:32)
[2019-03-12] MEDS ORDERED: methylPREDNISolone Sod Succ/PF 125 MG/2 ML VIAL ONE (14:33)
[2019-03-12 14:43] LABS: Hemoglobin 14.8 g/dL (14.0-18.0); Mean Corpuscular HGB CONC 32.4 g/dL (32.0-36.0); Mean Corpuscular Hemoglobin 31.4 pg (27.0-31.0); Mean Corpuscular Volume 96.8 fL (78.0-98.0); Mean Platelet Volume 8.5 fL (7.4-10.4); Platelet Count 152 thou/uL (130-400); Red Blood Cell (RBC) Count 4.73 mill/uL (4.70-6.10); White Blood Cell (WBC) Count 8.9 thou/uL (4.8-10.8)
[2019-03-12 14:46] LABS: ALV-art Gradient 104.475 (0-20); Actual Bicarbonate (HCO3a) 18.7 mEq/L (22-28); Analyzer IN Cardio ER; Base Excess (BEa) -3.6 mEq/L (-2.0 to +3.0); CO2 Tension 27.3 mmHg (35.0-45.0); Calcium, Ionized 1.16 mmol/L (1.12-1.30); Carboxyhemoglobin (COHb) 0.7 gm% (0.0-3.0); O2 Tension (PaO2) 75.3 mmHg (> 60.0); Potassium - ABG Lab 3.71 mmol/L (3.70-5.30); Puncture Site RRA; pH, Arterial 7.45 (7.35-7.45)
[2019-03-12 14:56] LABS: INR-International Normal Ratio 1.2; PTT 30.2 SEC (22.9-36.1); Prothrombin Time 14.8 SEC (12.0-14.7)
[2019-03-12 15:04] LABS: Band 52 % (5-11); MDiff Complete? YES; Monocytes 5 % (0-10); Neutrophil 34 % (42-75); Platelet Morphology Comment Appears Adequate; Polychromasia SLIGHT = 2-3 cells (100X) (0-2/hpf); Reactive Lymphocytes 9 % (0-10); Reflex for Review?? YES
[2019-03-12 15:07] LABS: ALT (SGPT) 12 U/L (8-55); AST (SGOT) 18 U/L (5-34); Albumin 4.1 g/dL (3.4-4.8); Alkaline Phosphatase 66 U/L (40-110); Anion Gap 19 mmol/L (10-20); BUN (Urea Nitrogen) 12 mg/dL (8.4-25.7); Bilirubin, Total 0.8 mg/dL (0.2-1.2); CK (CPK) 111 U/L (30-200); Calc. Creatinine Clearance 0 mL/min (70-130); Calcium 9.1 mg/dL (7.8-10.44); Carbon Dioxide 19 mmol/L (23-31); Chloride 99 mmol/L (98-107); Estimated GFR-MDRD Greater than 90; Globulin 2.4 g/dL (2.4-3.5); Glucose 299 mg/dL (83-110); Potassium 3.7 mmol/L (3.5-5.1); Protein, Total 6.5 g/dL (5.8-8.1); Sodium 133 mmol/L (136-145)
[2019-03-12] MEDS ORDERED: Dextrose 5% in Water 1,000 ML IV PRN (15:27)
[2019-03-12] MEDS ORDERED: Ondansetron PF 4 MG/2 ML Vial IVP PRN (15:27)
[2019-03-12] MEDS ORDERED: Guaifenesin DM 100-10/5 ML UDCUP PO PRN (15:27)
[2019-03-12] MEDS ORDERED: Bisacodyl 10 MG SUPP PR PRN (15:27)
[2019-03-12] MEDS ORDERED: Benzonatate 100 MG CAP PO PRN (15:27)
[2019-03-12] MEDS ORDERED: Senokot S 8.6-50 MG TAB PO PRN (15:27)
[2019-03-12] MEDS ORDERED: Dextrose 50% Abboject 50 ML SYRINGE SLOW IVP PRN (15:27)
[2019-03-12] MEDS ORDERED: Acetaminophen 325 MG TAB PO PRN (15:27)
[2019-03-12 15:34] LABS: CKMB 2.5 ng/mL (0-6.6)
--- NOTE | 2019-03-12 16:06 | RAD ---
EXAM: Chest one view: HISTORY: Cough COMPARISON: 03/11/2019 FINDINGS: Bilateral vascular congestion with less inspiration. Heart size: Minimal cardiomegaly. Lungs: No confluent pneumonia. Old granulomatous disease. Coiling material overlying the left infrahilar region. No evidence for confluent pneumonia, pleural effusion, acute edema, or pneumothorax, or other signifi cant acute process. IMPRESSION: Poor inspiratory effort and bilateral vascular congestion since the prior study.
--- NOTE | 2019-03-12 16:23 | HP ---
REASON FOR ADMISSION: Acute respiratory failure with hypoxia, CHF exacerbation with diastolic dysfunction. HISTORY OF PRESENTING ILLNESS: Please note majority of this history is obtained by talking to the patient's at bedside as the patient is not fully oriented. They have recently been to [place]. He has been coughing for the last 1 week. He also started wheezing from last 3 days. They called his customer account coordinator on-call for Dr. Win, advised them to take prednisone. He was also taking nebulizers three times a day albuterol, this got worse. The patient went to [facility] yesterday and was advised to continue prednisone and was sent home after that. This morning, Mr. Peñaloza could not stand or walk. He felt very weak and he was also confused. He normally ambulates by himself inside the house and uses a walker to go outside. The finally went to [facility] from where he was transferred here. Currently, he is on BiPAP. He still not fully oriented. He answers one of four questions correctly. He is tolerating BiPAP and is not in any distress at present. PAST MEDICAL AND SURGICAL HISTORY: History of Parkinson disease, COPD, chronic atrial fibrillation, watchman device with coiling for leak around it, Adapta pacemaker placed in July of 2014, GERD, dyslipidemia, coronary artery disease, hypertension, history of CVA in 2014, cholecystectomy, left knee surgery, left ear drum surgery, deviated nasal septum, bilateral eyelid surgery, left knee surgery, right ear drum implant, IVC filter, history of PTSD. CURRENT MEDICATIONS: The patient is on; 1. Carbidopa-levodopa 10/100 mg one tab three times daily. 2. Symbicort 160/4.5 mcg 2 puffs twice daily. 3. Albuterol nebulizer q.8 hourly p.r.n. 4. Metformin 500 mg p.o. twice daily. 5. Norvasc 5 mg p.o. q.a.m. 6. Protonix 40 mg p.o. daily. 7. Livalo 4 mg p.o. daily. 8. Toprol-XL 50 mg p.o. daily. 9. Zetia 5 mg p.o. daily. 10. Aspirin 81 mg p.o. daily. 11. Cymbalta 60 mg p.o. daily. 12. Lasix p.r.n. 13. Potassium chloride p.r.n. with Lasix. 14. Multivitamin one tablet once daily. ALLERGIES: TO CELEBREX, PEANUT, AND SOY. PERSONAL HISTORY: Quit smoking in December of 1993, prior to which has smoked 1 pack a day for nearly 20 years. Does not abuse alcohol or drugs. Lives with his . FAMILY HISTORY: Mother of breast cancer at the age of 94 years. Father in his 70s. He has had history of emphysema. CODE STATUS: Full. Power of aircraft metalsmith is his , Ms. Jh Arreola, and daughter, Ms. Tristian Arboleda. Number to reach [place] is [phone]. She works in our ICU. REVIEW OF SYSTEMS: Review of systems cannot be obtained as the patient is not oriented. PHYSICAL EXAMINATION: GENERAL: The patient is an 89-year-old male, who is currently not in any acute distress. VITAL SIGNS: Blood pressure 170/80, pulse 84 per minute, respiratory rate 22 per minute, saturating 94% on BiPAP, temperature 98.7 degrees Fahrenheit. NECK: Supple. No elevated JVD. HEENT: Eyes; extraocular muscles intact. Pupils reacting to light. Oral cavity, mucous membranes are dry. No exudates or congestion. CARDIOVASCULAR SYSTEM: S1 and S2 heard. Regular rhythm. RESPIRATORY SYSTEM: Air entry 1+ bilateral. There is rhonchi plus bilateral, rales plus in the infra-axillary area. No wheezes. ABDOMEN: Soft bowel sounds heard. No tenderness, rigidity, or guarding. EXTREMITIES: Mild peripheral edema. No calf tenderness. VASCULAR SYSTEM: Peripheral pulses 1+ bilateral. No ischemic ulcerations or gangrene. CENTRAL NERVOUS SYSTEM: No gross focal deficits noted. The patient is not fully oriented, but responds to verbal questions. PSYCHIATRIC SYSTEM: The patient is not oriented and cannot be accurately assessed. LABORATORY DATA: White count of 8.9, hemoglobin and hematocrit 14 and 45, platelet count 152 with 34% neutrophils, 52% bands, and 5% monocytes. PT/INR 14.8 and 1.2. Blood gas done shows a pH of 7.45, pCO2 of 27, PO2 of 75. This was on 30% FiO2 on BiPAP. Serum sodium is 133, serum bicarb 19, BUN 12, creatinine 0.7, serum glucose 299. Lactic acid 6.0. Liver enzymes within normal limits. BNP is 468. Troponin I 0.04. Influenza A and B antigens are negative. DIAGNOSTIC DATA: Chest x-ray by my review shows mild pulmonary vascular congestion. CLINICAL IMPRESSION AND PLAN: The patient will be admitted to [facility] for acute respiratory failure with hypoxia, CHF exacerbation with diastolic dysfunction, acute metabolic encephalopathy. He will be on Lasix 40 mg IV at 6 a.m. and 2 p.m., DuoNeb q.6 hourly, Solu-Medrol 40 mg q.6 hourly. We will continue his aspirin, Norvasc, Toprol-XL, Zetia, Livalo, metformin, Cymbalta as before. We will also continue his carbidopa-levodopa. He will be empirically placed on doxycycline for now. I have consulted Dr. Lawrence for Pulmonology. We will obtain echo with 2D Doppler for LV function. His prior echo was in January of 2015, which showed EF of 50% then. Code status is full, this was discussed with his at bedside. Job ID: [id number]
[2019-03-12 17:44] LABS: Lactic Acid 3.3 mmol/L (0.5-2.2)
[2019-03-12] MEDS ORDERED: methylPREDNISolone Sod Succ 40 MG VIAL IVP SCH (18:00)
[2019-03-12] MEDS ORDERED: Mometasone/Formoterol 120 PUFF INHALER INH SCH (18:30)
[2019-03-12] MEDS ORDERED: Prevnar 13-Val Conj/PF 0.5 ML SYRINGE IM ONE (21:00)
[2019-03-12] MEDS ORDERED: metFORMIN 500 MG TAB PO SCH (21:00)
[2019-03-12] MEDS ORDERED: FLU VACC TS2019-20(65YR UP)/PF 180 MCG/0.5 ML SYRINGE IM ONE (21:00)
[2019-03-12] MEDS ORDERED: guaiFENesin ER 600 MG TAB PO SCH (21:15)
[2019-03-12] MEDS: Doxycycline 100 MG CAP PO SCH (21:31)
[2019-03-12] MEDS: Atorvastatin Calcium 10 MG TAB PO SCH (21:31)
[2019-03-12] MEDS: Aspirin Chewable 81 MG TAB PO SCH (21:31)
[2019-03-12] MEDS: DULoxetine 60 MG CAP PO SCH (21:31)
[2019-03-12] MEDS: Ezetimibe 10 MG TAB PO SCH (21:32)
[2019-03-12] MEDS: Famotidine 20 MG TAB PO SCH (21:33)
[2019-03-12] MEDS: HumaLOG 300 UNITS/3 ML VIAL SC PRN (21:34)
--- NOTE | 2019-03-12 22:24 | CON ---
DATE OF CONSULTATION: 03/12/2019 SERVICE: Pulmonary Medicine. REASON FOR CONSULTATION: [facility] patient. HISTORY OF PRESENT ILLNESS: The patient is an 89-year-old white male with past medical history significant for COPD, and heart failure. He presented to the hospital because of dyspnea on exertion. He recently got back from a trip from [place]. He flew in on the 02 of March. He was in his usual state of health until 3 days prior to admission. He was sitting on the couch in the evening and has had a sudden onset and difficulty breathing. He did not have any pleuritic chest pain, cough, or hemoptysis. His shortness of breath slowly progressed over the next 3 days to the point where he could not get by. He presented to the emergency department. He is having a cough and bringing up a little bit of white phlegm. He is not having any night sweats. Nobody was sick around him, though he did have some nausea without vomiting and a couple of episodes of diarrhea. Otherwise, he has been able to keep his food down for the last 24 hours. His he had a similar episode after a cruise about a year and a half ago. PAST MEDICAL HISTORY: 1. COPD. 2. Parkinson disease. 3. Atrial fibrillation, chronic. 4. Gastroesophageal reflux disease. 5. Dyslipidemia. 6. Coronary artery disease. 7. Hypertension. 8. History of CVA. PAST SURGICAL HISTORY: 1. Watchman procedure. 2. AICD placement. 3. Status cholecystectomy. 4. Left knee surgery. 5. Left ear drum surgery. 6. Correction of deviated nasal septum. 7. Eye surgeries, bilateral. 8. Right ear drum implant. 9. IVC filter placement. SOCIAL HISTORY: He quit smoking in 1993, but prior to that, he had a 25-30 pack year history of smoking. He denies any alcohol or illicit drugs. He currently lives with his . He has no exposures to chemicals, dust, asbestos, or tuberculosis. FAMILY HISTORY: Noncontributory. ALLERGIES: CELEBREX, PEANUT, SOY. MEDICATIONS: List of his inpatient medications were reviewed. I deescalated his steroids, continued the nebulized medications and antibiotics. We will introduce the dose of Lasix. REVIEW OF SYSTEMS: General, head, ears, eyes, nose, throat, cardiovascular, respiratory, GI, , musculoskeletal, neurologic, and skin is negative except as mentioned in HPI. PHYSICAL EXAMINATION: VITAL SIGNS: Afebrile, pulse 89, blood pressure 139/61, respirations 22, saturation 93%, currently on 2 L nasal cannula. GENERAL: The patient is awake and alert. He is in mild respiratory distress. HEENT: Normocephalic and atraumatic. Sclerae white. Conjunctivae pink. Oral mucosa is moist without lesions. LUNGS: Decent air entry. There is a prolonged expiratory phase. There is polyphonic wheezing noted as well as rhonchi. The rhonchi cleared with cough. Dependent crackles are present. HEART: Normal rate, irregular. ABDOMEN: Soft, nontender, nondistended. Bowel sounds are positive. MUSCULOSKELETAL: No cyanosis or clubbing. There is 1+ pitting in the bilateral lower extremities. NEUROLOGIC: Grossly nonfocal. LABORATORY DATA: WBC 8.9, hemoglobin 14.8, and platelets 152,000. Neutrophil count is 34% on top of 52% bands. INR 1.2. pH 7.45, pCO2 27, pO2 75. Glucose 246. Lactate is trending down from 6 to 3.3. BNP 468, representing a historic high. Troponin 0.04. Liver function studies are unremarkable. Basic metabolic profile is only significant for elevated anion gap of 19, bicarb of 19, sodium of 133. Influenza A and B are both unremarkable. IMAGING: Chest x-ray demonstrates pulmonary vascular congestions and interstitial fullness. Subtle Olaf B lines are present. I do not see any obvious pleural effusions. Cardiac silhouette is generous, though this is an AP film. Lung volumes are actually not that impressive. Pacemaker, defibrillator is in place. ASSESSMENT: 1. Acute hypoxic respiratory failure. 2. Chronic obstructive pulmonary disease with acute exacerbation. 3. Kirka-oc-zhpyobu diastolic heart failure. 4. Atrial fibrillation, controlled rate. DISCUSSION AND PLAN: I will give the patient dose of Lasix now and tomorrow morning. We will continue antibiotics, nebulized medications, and steroids. The steroids will be converted over to p.o. medication. Because of the abrupt onset of his respiratory distress, I will get a D-dimer. If this is significantly elevated, we will be forced to pursue a CTA of the chest. I will check a respiratory virus panel. Pulmonary/Critical Care will follow very closely while this patient remains inhouse. He will continue using BiPAP at night as needed. 70 minutes have been devoted to this patient in various activities. I personally reviewed all imaging studies and laboratory data noted within this document. For fifty percent of this time, I was interacting with the patient at the bedside or coordinating care with the care team. For the remainder of the time I was immediately available to the patient in the hospital unit. Job ID: [id number] MTDD
[2019-03-12 22:59] VITALS: BMI 29.8
[2019-03-13 04:38] LABS: Anion Gap 14 mmol/L (10-20); BUN (Urea Nitrogen) 8 mg/dL (8.4-25.7); Calc. Creatinine Clearance 98 mL/min (70-130); Carbon Dioxide 21 mmol/L (23-31); Chloride 103 mmol/L (98-107); Estimated GFR-MDRD Greater than 90; Glucose 229 mg/dL (83-110); Sodium 134 mmol/L (136-145)
[2019-03-13 05:20] LABS: Band 34 % (5-11); Hemoglobin 14.3 g/dL (14.0-18.0); Lymphocytes 7 % (21-51); MDiff Complete? YES; Mean Corpuscular HGB CONC 32.6 g/dL (32.0-36.0); Mean Corpuscular Hemoglobin 31.4 pg (27.0-31.0); Mean Corpuscular Volume 96.5 fL (78.0-98.0); Mean Platelet Volume 8.9 fL (7.4-10.4); Metamyelocyte 1 % (0-0); Monocytes 6 % (0-10); Neutrophil 50 % (42-75); Platelet Count 131 thou/uL (130-400); Platelet Morphology Comment Appears Adequate; Reactive Lymphocytes 2 % (0-10); Red Blood Cell (RBC) Count 4.55 mill/uL (4.70-6.10); White Blood Cell (WBC) Count 10.1 thou/uL (4.8-10.8)
[2019-03-13] MEDS: HumaLOG 300 UNITS/3 ML VIAL SC PRN ×3 (05:51→20:53)
[2019-03-13] MEDS ORDERED: Furosemide 40 MG/4 ML VIAL SLOW IVP SCH (06:00)
[2019-03-13] MEDS: predniSONE 20 MG TAB PO SCH (08:17)
[2019-03-13] MEDS: Doxycycline 100 MG CAP PO SCH ×2 (08:17→21:02)
[2019-03-13] MEDS: Enoxaparin Sodium 40 MG/0.4 ML SYRINGE SC SCH (08:18)
[2019-03-13] MEDS: Amlodipine 5 MG TAB PO SCH (08:18)
[2019-03-13] MEDS: guaiFENesin ER 600 MG TAB PO SCH ×2 (08:18→20:50)
[2019-03-13] MEDS: Famotidine 20 MG TAB PO SCH ×2 (08:21→20:50)
--- NOTE | 2019-03-13 11:54 | PDOC.HOSPP ---
- Subjective Encounter Date: 03/13/19 Encounter Time: 09:30 Subjective: is off bipap/cpap and nasal canula oxygen this am feels better, at bedside still has cough - Objective Vital Signs & Weight: Vital Signs (12 hours) Temp Pulse Resp BP Pulse Ox 03/13/19 10:23 97.0 F L 03/13/19 08:18 61 110/56 L 03/13/19 08:00 97 03/13/19 07:08 97.0 F L 03/13/19 07:05 94 L 03/13/19 07:02 61 18 94 L 03/13/19 04:00 97.6 F 03/13/19 00:22 64 19 93 L 03/13/19 00:21 60 19 93 L Weight Weight 192 lb 2 oz Most Recent Monitor Data Heart Rate from ECG 62 NIBP 100/59 NIBP BP-Mean 72 Respiration from ECG 17 SpO2 94 I&O: 03/12/19 03/13/19 03/14/19 06:59 06:59 06:59 Intake Total 240 Balance 240 Result Diagrams: 03/13/19 03:40 03/13/19 03:40 Additional Labs: Accuchecks 03/13/19 03/13/19 03/12/19 10:11 05:41 19:52 POC Glucose 180 H 181 H 246 H Hospitalist ROS - Medication Medications: Active Medications Generic Name Dose Route Start Last Admin Trade Name Freq PRN Reason Stop Dose Admin Albuterol/Ipratropium 3 ml 03/12/19 19:00 03/13/19 07:02 Duoneb NEB 3 ml [id number] VIPUL Administration Amlodipine Besylate 5 mg 03/13/19 09:00 03/13/19 08:18 Norvasc PO 5 mg DAILY VIPUL Administration Aspirin 81 mg 03/12/19 21:00 03/12/19 21:31 Aspirin Chewable PO 81 mg HS VIPUL Administration Atorvastatin Calcium 10 mg 03/12/19 21:00 03/12/19 21:31 Lipitor PO 10 mg HS VIPUL Administration Doxycycline Hyclate 100 mg 03/12/19 21:00 03/13/19 08:17 Vibramycin PO 100 mg BID VIPUL Administration Duloxetine HCl 60 mg 03/12/19 21:00 03/12/19 21:31 Cymbalta PO 60 mg HS VIPUL Administration Ezetimibe 5 mg 03/12/19 21:00 03/12/19 21:32 Zetia PO 5 mg HS VIPUL Administration Enoxaparin Sodium 40 mg 03/13/19 09:00 03/13/19 08:18 Lovenox SC 40 mg 0900 VIPUL Administration Famotidine 20 mg 03/12/19 21:00 03/13/19 08:21 Pepcid PO Not Given BID VIPUL Furosemide 40 mg 03/13/19 06:00 03/13/19 05:51 Lasix SLOW IVP 03/14/19 14:01 40 mg 0600,1400 VIPUL Administration Guaifenesin 1,200 mg 03/13/19 09:00 03/13/19 08:18 Mucinex PO 1,200 mg Q12HR VIPUL Administration Insulin Human Lispro 0 units 03/12/19 15:27 03/13/19 05:51 Humalog SC 2 units .MODERATE SLIDING SC PRN Administration Moderate Correctional Scale Insulin Human Lispro 0 units 03/12/19 15:27 03/12/19 21:34 Humalog SC 2 units .BEDTIME SLIDING SC PRN Administration Bedtime Correctional Scale Metoprolol Succinate 50 mg 03/12/19 21:00 03/12/19 21:33 Toprol Xl PO 50 mg QPM VIPUL Administration Pantoprazole Sodium 40 mg 03/13/19 09:00 03/13/19 08:20 Protonix PO 40 mg DAILY VIPUL Administration Prednisone 40 mg 03/13/19 08:00 03/13/19 08:17 Prednisone PO 03/17/19 08:01 40 mg QAM-WM VIPUL Administration - Exam General Appearance: NAD, awake alert Eye: PERRL, anicteric sclera ENT: no oropharyngeal lesions, dry oral mucosa Neck: supple, no JVD Heart: RRR, no murmur Respiratory: no wheezes, no rales, rhonchi Gastrointestinal: soft, non-tender, non-distended, normal bowel sounds Extremities: no cyanosis, no edema Neurological: cranial nerve grossly intact, no focal deficits Psychiatric: normal affect, A&O x 3 Hosp A/P (1) Acute exacerbation of CHF (congestive heart failure) Code(s): I50.9 - HEART FAILURE, UNSPECIFIED Status: Acute Qualifiers: Heart failure type: diastolic Qualified Code(s): I50.33 - Acute on chronic diastolic (congestive) heart failure (2) Acute respiratory failure with hypoxia Code(s): J96.01 - ACUTE RESPIRATORY FAILURE WITH HYPOXIA Status: Resolved (3) COPD exacerbation Code(s): J44.1 - CHRONIC OBSTRUCTIVE PULMONARY DISEASE W (ACUTE) EXACERBATION Status: Acute (4) DM type 2 (diabetes mellitus, type 2) Status: Chronic Qualifiers: Diabetes mellitus correction insulin use: without correction use (5) CAD (coronary artery disease) Code(s): I25.10 - ATHSCL HEART DISEASE OF [place] CORONARY ARTERY W/O ANG PCTRS Status: Chronic Qualifiers: Coronary Disease-Associated Artery/Lesion type: [place] artery [place] vs. transplanted heart: [place] heart Associated angina: without angina Qualified Code(s): I25.10 - Atherosclerotic heart disease of [place] coronary artery without angina pectoris (6) Dyslipidemia Code(s): E78.5 - HYPERLIPIDEMIA, UNSPECIFIED Status: Chronic (7) H/O: CVA (cerebrovascular accident) Code(s): Z86.73 - PRSNL HX OF TIA (TIA), AND CEREB INFRC W/O RESID DEFICITS Status: Chronic (8) Hypertension Code(s): I10 - ESSENTIAL (PRIMARY) HYPERTENSION Status: Chronic Qualifiers: Hypertension type: essential hypertension Qualified Code(s): I10 - Essential (primary) hypertension - Plan is on lasix, nebs, prednisone, doxy continue levodopa/carbidopa, toprol xl, metformin, asp, lipitor and zetia hemostable, mobilize with PT echo may tx to telemetry if ok with specialists.
--- NOTE | 2019-03-13 12:43 | CON ---
DATE OF CONSULTATION: 03/13/2019 REASON FOR CONSULTATION: Diastolic heart failure and shortness of breath. PRIMARY SPEEDER MACHINE OPERATOR: Dr. Seymour Milner. HISTORY OF PRESENT ILLNESS: Mr. Peñaloza is a very pleasant 89-year-old white gentleman, who comes to the hospital for increased shortness of breath. He developed worsening shortness of breath and was admitted for COPD exacerbation, a little bit of diastolic heart failure. He was given some IV Lasix and is already feeling better. He still needs some pulmonary toilet. Cardiology is being consulted for evaluation of his diastolic heart failure. Currently, his breathing has significantly improved. He is on room air, saturating in the mid 90s. He has been having a lot more cough productive of greenish sputum with a little blood tinge. No fevers. He just had a trip to [place], flew back on the 02 of March. PAST MEDICAL HISTORY: 1. COPD. 2. Parkinson disease. 3. Chronic atrial fibrillation. 4. GERD. 5. Hyperlipidemia. 6. Coronary artery disease, status post PTCA in 1993, still pain. 7. Hypertension. 8. History of CVA. PAST SURGICAL HISTORY: 1. Watchman device in place. 2. AICD placement. 3. Cholecystectomy. 4. Left knee surgery. 5. Left eardrum surgery. 6. Deviated nasal septum correction. 7. Eye surgery, bilateral. 8. Right eardrum implant. 9. IVC filter placed. SOCIAL HISTORY: Quit smoking in 1993. Denies alcohol or drugs. Lives with . FAMILY HISTORY: Noncontributory. ALLERGIES: CELEBREX, PEANUT, AND SOY. MEDICATIONS: Outpatient medications; 1. Carbidopa/levodopa. 2. Norvasc 5 mg a day. 3. Cymbalta 60 mg at bedtime. 4. Lubricant eye drops. 5. Symbicort. 6. Aspirin 81 a day. 7. Lasix 40 mg a day. 8. Zetia 5 mg a day. 9. Multivitamin daily. 10. Toprol-XL 50 mg daily. 11. Ipratropium with albuterol 3 mL t.i.d. p.r.n. nebulizations. 12. Livalo 4 mg a day. 13. Pantoprazole 40 mg a day. 14. Metformin 500 mg b.i.d. 15. Potassium chloride 10 mEq a day. REVIEW OF SYSTEMS: 12-point review of systems was done and was all negative unless stated in the history of present illness. PHYSICAL EXAMINATION: VITAL SIGNS: Temperature 97.0, pulse 61, respiratory rate 22, saturating 94% on room air, blood pressure 100/59. GENERAL: Awake, alert, and oriented x3, in no distress. HEENT: Normocephalic and atraumatic. NECK: Supple. LUNGS: Have coarse breath sounds bilaterally with rhonchi and prolonged expiratory phase. CARDIOVASCULAR: S1 and S2. No S3 or S4. Heart rate in the 60s. Grade 2/6 systolic murmur at the right upper sternal border. ABDOMEN: Soft, positive bowel sounds. EXTREMITIES: No edema. SKIN: Warm and dry. LABORATORY DATA: Laboratory work was reviewed. White count of 8.9, hemoglobin 14, hematocrit 45, and platelet count of 152. Coags were reviewed. ABG was reviewed. Chemistries were reviewed. BUN and creatinine are normal. GFR greater than 90. TSH was low at 0.24. BNP 468. DIAGNOSTIC DATA: Chest x-ray was reviewed. Bilateral vascular congestion. ASSESSMENT/PLAN: 1. 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 2. Chronic obstructive pulmonary disease with acute exacerbation. 3. Indeterminate troponins. PLAN: 1. We will repeat echocardiogram to assess LV function again. 2. We will decrease the dose of IV Lasix as it is much closer we will decrease it to 20 mg, agree with a total of four doses. 3. Continue pulmonary toilet per pulmonary steroids as above. Thank you for letting us participate in the care of your patient. We will follow. Job ID: [id number]
[2019-03-13] MEDS ORDERED: Carbidopa/Levodopa 10-100 mg Tablet PO SCH (15:00)
[2019-03-13] MEDS: CARBIDOPA PO SCH ×2 (15:36→20:50)
[2019-03-13] MEDS: LEVODOPA PO SCH ×2 (15:36→20:50)
[2019-03-13] MEDS: Furosemide 20 MG/2 ML VIAL SLOW IVP SCH (15:36)
[2019-03-13] MEDS: metFORMIN 500 MG TAB PO SCH (15:48)
--- NOTE | 2019-03-13 18:16 | PRG ---
DATE OF SERVICE: 03/13/2019 SERVICE: Pulmonary medicine. INTERVAL HISTORY: The patient is doing great from respiratory standpoint. He has been up walking the hallways today. He did use the BiPAP last night. He slept comfortably. There is no significant interval change to his history. PHYSICAL EXAMINATION: VITAL SIGNS: Afebrile. Pulse 66, blood pressure 112/69, respirations 23, saturation 96%, currently on 2 L nasal cannula. GENERAL: The patient is awake and alert, in no apparent distress. LUNGS: Excellent air entry. No prolonged expiratory phase or wheezing is appreciated. HEART: Normal rate, regular. ABDOMEN: Soft, nontender, nondistended. Bowel sounds are positive. MUSCULOSKELETAL: No cyanosis or clubbing. There is trace pitting in the bilateral lower extremities, which has improved. NEUROLOGIC: Grossly nonfocal. LABORATORY DATA: WBC 10.1, hemoglobin 14.3, platelets 131,000. INR 1.2, D- dimer 0.86. PH 7.45, pCO2 of 27, pO2 of 75. Basic metabolic profile is completely unremarkable. TSH is 0.25. Blood sugar ranges from 180 to 266. Respiratory virus panel is negative. Influenza A and B, blood cultures x2 are negative as well. ASSESSMENT: 1. Acute hypoxic respiratory failure. 2. Chronic obstructive pulmonary disease with acute exacerbation. 3. [id number] diastolic heart failure. 4. Obstructive sleep apnea, suspected. DISCUSSION AND PLAN: The patient is doing fine from respiratory standpoint. We will hold the BiPAP tonight. If he tolerates not having to use this thing, he can be considered for transition to the floor in the morning. Pulmonary/Critical Care will continue to follow along. Otherwise, supportive care including nebulized medications, steroids, and antibiotics will be continued. The D-dimer is minimally elevated. That being said, he has had such a pronounced improvement in symptoms that I do not think that a PE is likely culprit here. Job ID: [id number] [facility]
[2019-03-13] MEDS: Aspirin Chewable 81 MG TAB PO SCH (20:48)
[2019-03-13] MEDS: Atorvastatin Calcium 10 MG TAB PO SCH (20:48)
[2019-03-13] MEDS: Ezetimibe 10 MG TAB PO SCH (20:49)
[2019-03-13] MEDS: DULoxetine 60 MG CAP PO SCH (20:49)
[2019-03-14] MEDS: Furosemide 20 MG/2 ML VIAL SLOW IVP SCH ×2 (06:05→12:53)
[2019-03-14] MEDS: HumaLOG 300 UNITS/3 ML VIAL SC PRN ×3 (06:06→21:00)
[2019-03-14 08:48] LABS: #Monocytes 0.5 thou/uL (0.11-0.59); #Neutrophils 6.3 thou/uL (1.40-6.50); %Basophils 0.6 % (0.0-1.0); %Eosinophils 0.5 % (0.0-10.0); %Lymphocytes 12.7 % (21.0-51.0); %Monocytes 6.3 % (0.0-10.0); %Neutrophils 79.9 % (42.0-75.0); Hemoglobin 14.2 g/dL (14.0-18.0); Mean Corpuscular HGB CONC 31.9 g/dL (32.0-36.0); Mean Corpuscular Hemoglobin 31.2 pg (27.0-31.0); Mean Corpuscular Volume 97.6 fL (78.0-98.0); Mean Platelet Volume 8.4 fL (7.4-10.4); Platelet Count 159 thou/uL (130-400); RBC Distribution Width 12.7 % (11.5-14.5); Red Blood Cell (RBC) Count 4.55 mill/uL (4.70-6.10); White Blood Cell (WBC) Count 7.9 thou/uL (4.8-10.8)
[2019-03-14] MEDS: CARBIDOPA PO SCH ×3 (08:53→20:52)
[2019-03-14] MEDS: LEVODOPA PO SCH ×3 (08:53→20:52)
[2019-03-14 08:59] LABS: ALT (SGPT) 13 U/L (8-55); AST (SGOT) 15 U/L (5-34); Albumin 3.7 g/dL (3.4-4.8); Alkaline Phosphatase 57 U/L (40-110); Anion Gap 13 mmol/L (10-20); BUN (Urea Nitrogen) 14 mg/dL (8.4-25.7); Bilirubin, Total 0.6 mg/dL (0.2-1.2); Calc. Creatinine Clearance 82 mL/min (70-130); Calcium 9.4 mg/dL (7.8-10.44); Carbon Dioxide 27 mmol/L (23-31); Chloride 100 mmol/L (98-107); Estimated GFR-MDRD Greater than 90; Globulin 2.7 g/dL (2.4-3.5); Glucose 219 mg/dL (83-110); Potassium 3.5 mmol/L (3.5-5.1); Protein, Total 6.4 g/dL (5.8-8.1); Sodium 136 mmol/L (136-145)
[2019-03-14 09:24] LABS: Free T4 (Free Thyroxine) 0.86 ng/dL (0.70-1.48); Thyroid Stimulating Hormone 1.1618 uIU/mL (0.35-4.94)
[2019-03-14] MEDS: Amlodipine 5 MG TAB PO SCH (09:43)
[2019-03-14] MEDS: metFORMIN 500 MG TAB PO SCH ×2 (09:44→17:06)
[2019-03-14] MEDS: guaiFENesin ER 600 MG TAB PO SCH ×2 (09:44→20:50)
[2019-03-14] MEDS: predniSONE 20 MG TAB PO SCH (09:44)
[2019-03-14] MEDS: Enoxaparin Sodium 40 MG/0.4 ML SYRINGE SC SCH (09:44)
[2019-03-14] MEDS: Doxycycline 100 MG CAP PO SCH ×2 (09:44→20:50)
[2019-03-14] MEDS: Famotidine 20 MG TAB PO SCH ×2 (09:45→20:50)
--- NOTE | 2019-03-14 14:09 | PDOC.HOSPP ---
- Subjective Encounter Date: 03/14/19 Encounter Time: 08:20 Subjective: sitting in chair, at bedside no sob, feels better, is eating good per - Objective Vital Signs & Weight: Vital Signs (12 hours) Temp Pulse Pulse Pulse Pulse Resp BP 03/14/19 12:34 76 20 03/14/19 11:16 96.6 F L 03/14/19 09:43 70 156/72 H 03/14/19 09:17 84 81 100 03/14/19 07:25 97.1 F L 03/14/19 07:07 70 18 03/14/19 03:31 96.6 F L BP BP BP 03/14/19 12:34 03/14/19 11:16 03/14/19 09:43 03/14/19 09:17 120/66 107/68 156/76 H 03/14/19 07:25 03/14/19 07:07 03/14/19 03:31 Weight Weight 183 lb 3 oz Most Recent Monitor Data Heart Rate from ECG 64 NIBP 111/71 NIBP BP-Mean 84 Respiration from ECG 18 SpO2 99 I&O: 03/13/19 03/14/19 03/15/19 06:59 06:59 06:59 Intake Total 240 880 Output Total 1800 Balance 240 -920 Result Diagrams: 03/14/19 08:31 03/14/19 08:31 Additional Labs: Accuchecks 03/14/19 03/14/19 03/13/19 10:44 05:14 20:35 POC Glucose 181 H 171 H 245 H 03/13/19 16:11 POC Glucose 266 H Hospitalist ROS - Medication Medications: Active Medications Generic Name Dose Route Start Last Admin Trade Name Freq PRN Reason Stop Dose Admin Albuterol/Ipratropium 3 ml 03/12/19 19:00 03/14/19 12:34 Duoneb NEB 3 ml [id number] VIPUL Administration Amlodipine Besylate 5 mg 03/13/19 09:00 03/14/19 09:43 Norvasc PO 5 mg DAILY VIPUL Administration Aspirin 81 mg 03/12/19 21:00 03/13/19 20:48 Aspirin Chewable PO 81 mg HS VIPUL Administration Atorvastatin Calcium 10 mg 03/12/19 21:00 03/13/19 20:48 Lipitor PO 10 mg HS VIPUL Administration Doxycycline Hyclate 100 mg 03/12/19 21:00 03/14/19 09:44 Vibramycin PO 100 mg BID VIPUL Administration Duloxetine HCl 60 mg 03/12/19 21:00 03/13/19 20:49 Cymbalta PO 60 mg HS VIPUL Administration Ezetimibe 5 mg 03/12/19 21:00 03/13/19 20:49 Zetia PO 5 mg HS VIPUL Administration Enoxaparin Sodium 40 mg 03/13/19 09:00 03/14/19 09:44 Lovenox SC 40 mg 0900 VIPUL Administration Famotidine 20 mg 03/12/19 21:00 03/14/19 09:45 Pepcid PO Not Given BID VIPUL Guaifenesin 1,200 mg 03/13/19 09:00 03/14/19 09:44 Mucinex PO 1,200 mg Q12HR VIPUL Administration Insulin Human Lispro 0 units 03/12/19 15:27 03/14/19 06:06 Humalog SC 2 units .MODERATE SLIDING SC PRN Administration Moderate Correctional Scale Insulin Human Lispro 0 units 03/12/19 15:27 03/13/19 20:53 Humalog SC 2 units .BEDTIME SLIDING SC PRN Administration Bedtime Correctional Scale Metformin HCl 500 mg 03/13/19 17:00 03/14/19 09:44 Glucophage PO 500 mg BID-WM VIPUL Administration Metoprolol Succinate 50 mg 03/12/19 21:00 03/13/19 20:50 Toprol Xl PO 50 mg QPM VIPUL Administration Pantoprazole Sodium 40 mg 03/13/19 09:00 03/14/19 09:44 Protonix PO 40 mg DAILY VIPUL Administration Carbidopa/Levodopa 0 each 03/13/19 15:00 03/14/19 12:53 10/100 PO 1 each TID VIPUL Administration Prednisone 40 mg 03/13/19 08:00 03/14/19 09:44 Prednisone PO 03/17/19 08:01 40 mg QAM-WM [facility] Administration - Exam General Appearance: awake alert Eye: PERRL, anicteric sclera ENT: no oropharyngeal lesions, moist mucosa Neck: supple, no JVD Heart: RRR, no murmur Respiratory: no wheezes, no rales, rhonchi Gastrointestinal: soft, non-tender, non-distended, normal bowel sounds Extremities: no cyanosis, no edema Neurological: cranial nerve grossly intact, no focal deficits Psychiatric: normal affect, A&O x 3 Hosp A/P (1) Acute exacerbation of CHF (congestive heart failure) Code(s): I50.9 - HEART FAILURE, UNSPECIFIED Status: Acute Qualifiers: Heart failure type: diastolic Qualified Code(s): I50.33 - Acute on chronic diastolic (congestive) heart failure (2) Acute respiratory failure with hypoxia Code(s): J96.01 - ACUTE RESPIRATORY FAILURE WITH HYPOXIA Status: Resolved (3) COPD exacerbation Code(s): J44.1 - CHRONIC OBSTRUCTIVE PULMONARY DISEASE W (ACUTE) EXACERBATION Status: Acute (4) DM type 2 (diabetes mellitus, type 2) Status: Chronic Qualifiers: Diabetes mellitus termite control technician insulin use: without termite control technician use (5) CAD (coronary artery disease) Code(s): I25.10 - ATHSCL HEART DISEASE OF [place] CORONARY ARTERY W/O ANG PCTRS Status: Chronic Qualifiers: Coronary Disease-Associated Artery/Lesion type: [place] artery [place] vs. transplanted heart: [place] heart Associated angina: without angina Qualified Code(s): I25.10 - Atherosclerotic heart disease of [place] coronary artery without angina pectoris (6) Dyslipidemia Code(s): E78.5 - HYPERLIPIDEMIA, UNSPECIFIED Status: Chronic (7) H/O: CVA (cerebrovascular accident) Code(s): Z86.73 - PRSNL HX OF TIA (TIA), AND CEREB INFRC W/O RESID DEFICITS Status: Chronic (8) Hypertension Code(s): I10 - ESSENTIAL (PRIMARY) HYPERTENSION Status: Chronic Qualifiers: Hypertension type: essential hypertension Qualified Code(s): I10 - Essential (primary) hypertension - Plan is on lasix, nebs, prednisone, doxy continue levodopa/carbidopa, toprol xl, metformin, asp, lipitor and zetia hemostable, mobilize with PT echo shows ef of 45%, apical hypokinesis tx to telemetry if ok with specialists, swing bed in [place] Hem[facility] is mobilizing well with PT
[2019-03-14] MEDS ORDERED: Potassium Chloride 20 MEQ TAB PO SCH (15:30)
--- NOTE | 2019-03-14 15:36 | PRG ---
DATE OF SERVICE: 03/14/2019 SERVICE: Pulmonary Medicine. INTERVAL HISTORY: The patient is doing really well from respiratory standpoint. He is breathing comfortably. He denies any current chest discomfort, nausea, or vomiting. Otherwise, he is returning to his usual state of health. He denies having any significant cough. He is not bringing up any phlegm any longer. He has been up walking with physical therapy. He did not require BiPAP last night. PHYSICAL EXAMINATION: VITAL SIGNS: Afebrile, pulse 64, blood pressure 111/71, respirations 18, and saturation 99% currently on room air. GENERAL: The patient is awake and alert, in no apparent distress. LUNGS: Much improved air entry. There is a prolonged expiratory phase, but no wheezing is appreciated today. Dependent crackles are present. HEART: Normal rate and regular. ABDOMEN: Soft, nontender, and nondistended. Bowel sounds are positive. MUSCULOSKELETAL: No cyanosis or clubbing. There is trace pitting in the bilateral lower extremities. NEUROLOGIC: Grossly nonfocal. LABORATORY DATA: WBC 7.9, hemoglobin 14.2, and platelets 159,000. Basic metabolic profile and liver function studies are unremarkable. TSH is normal. Sputum is growing presumptive strep pneumonia. Respiratory virus panel is negative. Blood cultures x2 and influenza A and B are unremarkable. IMAGING: Echocardiogram demonstrates 40% to 45% ejection fraction. There is an abnormal bouncing of the septum present associated with his pacing. ASSESSMENT: 1. Acute hypoxic respiratory failure. 2. Chronic obstructive pulmonary disease with acute exacerbation. 3. Possible tracheobronchitis secondary to Streptococcus. 4. Acute on chronic systolic and diastolic heart failure. DISCUSSION AND PLAN: The patient is doing great with nothing more than diuretics. He has had a very rapid response to this therapy. We will continue his nebulized medications, steroids, and antibiotics directing at strep species. I will deescalate the antibiotics today. From my perspective, he is stable for transition out of the ICU to the telemetry unit. Pulmonary/Critical Care will continue to follow along for the time being. Dr. Win will assume care in the morning as he has well established relationship with Mr. Peñaloza. I will replace his potassium and we will check a magnesium tomorrow morning. Job ID: [id number]
[2019-03-14] MEDS: Aspirin Chewable 81 MG TAB PO SCH (20:49)
[2019-03-14] MEDS: Docusate 100 MG CAP PO SCH (20:49)
[2019-03-14] MEDS: Atorvastatin Calcium 10 MG TAB PO SCH (20:50)
[2019-03-14] MEDS: DULoxetine 60 MG CAP PO SCH (20:51)
[2019-03-14] MEDS: Ezetimibe 10 MG TAB PO SCH (20:51)
[2019-03-15 05:02] LABS: Anion Gap 12 mmol/L (10-20); BUN (Urea Nitrogen) 17 mg/dL (8.4-25.7); Calc. Creatinine Clearance 80 mL/min (70-130); Calcium 9.5 mg/dL (7.8-10.44); Carbon Dioxide 29 mmol/L (23-31); Chloride 100 mmol/L (98-107); Estimated GFR-MDRD Greater than 90; Glucose 175 mg/dL (83-110); Magnesium 1.9 mg/dL (1.6-2.6); Sodium 137 mmol/L (136-145)
[2019-03-15] MEDS: HumaLOG 300 UNITS/3 ML VIAL SC PRN ×3 (05:47→15:59)
--- NOTE | 2019-03-15 08:40 | PRG ---
DATE OF SERVICE: 03/15/2019 SUBJECTIVE: He says he feels somewhat better. He has now been in the hospital for 3 days. OBJECTIVE: VITAL SIGNS: Temperature is 96.2, pulse 77, blood pressure 120/86, O2 saturation 98%. HEENT: Unremarkable. NECK: No adenopathy or JVD. CHEST: Fairly clear. CARDIAC: S1 and S2. Regular. ABDOMEN: Soft. EXTREMITIES: No edema. LABORATORY DATA: White blood cell count 7.9, hematocrit 44, and platelet count 159. Sodium 137, potassium 4, chloride 100, CO2 of 29, BUN 17, creatinine 0.7, glucose 175. ASSESSMENT: 1. Chronic obstructive pulmonary disease with exacerbation. 2. Mildly depressed EF 40% to 45%. PLAN: 1. Transfer to the floor. 2. Continue antibiotics, steroids, nebulization treatments, and diuretics. 3. Focus on physical therapy. Job ID: [id number]
[2019-03-15] MEDS: metFORMIN 500 MG TAB PO SCH ×2 (09:16→15:48)
[2019-03-15] MEDS: Furosemide 40 MG TAB PO SCH (09:16)
[2019-03-15] MEDS: predniSONE 20 MG TAB PO SCH (09:16)
[2019-03-15] MEDS: Amlodipine 5 MG TAB PO SCH (09:16)
[2019-03-15] MEDS: Docusate 100 MG CAP PO SCH ×2 (09:17→20:41)
[2019-03-15] MEDS: guaiFENesin ER 600 MG TAB PO SCH ×2 (09:17→20:41)
[2019-03-15] MEDS: Famotidine 20 MG TAB PO SCH ×2 (09:17→20:41)
[2019-03-15] MEDS: Enoxaparin Sodium 40 MG/0.4 ML SYRINGE SC SCH (09:17)
[2019-03-15] MEDS: Doxycycline 100 MG CAP PO SCH ×2 (09:17→20:40)
[2019-03-15] MEDS: CARBIDOPA PO SCH ×7 (09:18→20:42)
[2019-03-15] MEDS: LEVODOPA PO SCH ×7 (09:18→20:42)
[2019-03-15] MEDS: Polyethylene Glycol 3350 17 GM Packet PO SCH (09:18)
--- NOTE | 2019-03-15 17:01 | PDOC.HOSPP ---
- Subjective Encounter Date: 03/15/19 Encounter Time: 09:35 Subjective: sitting in chair, ate his breakfast feels better cough is better - Objective Vital Signs & Weight: Vital Signs (12 hours) Temp Pulse Resp Pulse Ox 03/15/19 16:05 96.6 F L 03/15/19 12:13 60 16 03/15/19 11:01 96.7 F L 66 16 03/15/19 09:16 76 03/15/19 08:00 100 03/15/19 07:50 96.2 F L 03/15/19 07:14 76 18 Weight Weight 187 lb 3.2 oz Most Recent Monitor Data Heart Rate from ECG 63 NIBP 133/76 NIBP BP-Mean 95 Respiration from ECG 20 SpO2 100 I&O: 03/14/19 03/15/19 03/16/19 06:59 06:59 06:59 Intake Total 880 1070 Output Total 1800 2300 Balance -920 -1230 Result Diagrams: 03/14/19 08:31 03/15/19 04:30 Additional Labs: Accuchecks 03/15/19 03/15/19 03/15/19 15:59 11:01 05:44 POC Glucose 212 H 188 H 151 H 03/14/19 20:16 POC Glucose 280 H Hospitalist ROS - Medication Medications: Active Medications Generic Name Dose Route Start Last Admin Trade Name Keaganq PRN Reason Stop Dose Admin Albuterol/Ipratropium 3 ml 03/12/19 19:00 03/15/19 12:13 Duoneb NEB 3 ml [id number] VIPUL Administration Amlodipine Besylate 5 mg 03/13/19 09:00 03/15/19 09:16 Norvasc PO 5 mg DAILY VIPUL Administration Aspirin 81 mg 03/12/19 21:00 03/14/19 20:49 Aspirin Chewable PO 81 mg HS VIPUL Administration Atorvastatin Calcium 10 mg 03/12/19 21:00 03/14/19 20:50 Lipitor PO 10 mg HS VIPUL Administration Docusate Sodium 100 mg 03/14/19 21:00 03/15/19 09:17 Colace PO 100 mg BID VIPUL Administration Doxycycline Hyclate 100 mg 03/12/19 21:00 03/15/19 09:17 Vibramycin PO 100 mg BID VIPUL Administration Duloxetine HCl 60 mg 03/12/19 21:00 03/14/19 20:51 Cymbalta PO 60 mg HS VIPUL Administration Ezetimibe 5 mg 03/12/19 21:00 03/14/19 20:51 Zetia PO 5 mg HS VIPUL Administration Enoxaparin Sodium 40 mg 03/13/19 09:00 03/15/19 09:17 Lovenox SC 40 mg 0900 VIPUL Administration Famotidine 20 mg 03/12/19 21:00 03/15/19 09:17 Pepcid PO 20 mg BID VIPUL Administration Furosemide 40 mg 03/15/19 07:30 03/15/19 09:16 Lasix PO 40 mg DAILY-AC VIPUL Administration Guaifenesin 1,200 mg 03/13/19 09:00 03/15/19 09:17 Mucinex PO 1,200 mg Q12HR VIPUL Administration Insulin Human Lispro 0 units 03/12/19 15:27 03/15/19 15:59 Humalog SC 4 units .MODERATE SLIDING SC PRN Administration Moderate Correctional Scale Insulin Human Lispro 0 units 03/12/19 15:27 03/14/19 21:00 Humalog SC 3 units .BEDTIME SLIDING SC PRN Administration Bedtime Correctional Scale Metformin HCl 500 mg 03/13/19 17:00 03/15/19 15:48 Glucophage PO 500 mg BID-WM VIPUL Administration Metoprolol Succinate 50 mg 03/12/19 21:00 03/14/19 20:50 Toprol Xl PO 50 mg QPM VIPUL Administration Pantoprazole Sodium 40 mg 03/13/19 09:00 03/15/19 09:17 Protonix PO 40 mg DAILY VIPUL Administration Carbidopa/Levodopa 0 each 03/13/19 15:00 03/15/19 15:47 10/100 PO 1 each TID VIPUL Administration Polyethylene Glycol 17 gm 03/15/19 09:00 03/15/19 09:18 Miralax PO 17 gm DAILY VIPUL Administration Prednisone 40 mg 03/13/19 08:00 03/15/19 09:16 Prednisone PO 03/17/19 08:01 40 mg QAM-WM VIPUL Administration - Exam General Appearance: NAD, awake alert Eye: PERRL, anicteric sclera ENT: no oropharyngeal lesions, moist mucosa Neck: supple, no JVD Heart: RRR, no murmur Respiratory: no wheezes, no rales, rhonchi Gastrointestinal: soft, non-tender, non-distended, normal bowel sounds Extremities: no cyanosis, no edema Neurological: cranial nerve grossly intact, no focal deficits Psychiatric: normal affect, A&O x 3 Hosp A/P (1) Acute exacerbation of CHF (congestive heart failure) Code(s): I50.9 - HEART FAILURE, UNSPECIFIED Status: Acute Qualifiers: Heart failure type: combined systolic and diastolic Qualified Code(s): I50.43 - Acute on chronic combined systolic (congestive) and diastolic ( congestive) heart failure (2) Acute respiratory failure with hypoxia Code(s): J96.01 - ACUTE RESPIRATORY FAILURE WITH HYPOXIA Status: Resolved (3) COPD exacerbation Code(s): J44.1 - CHRONIC OBSTRUCTIVE PULMONARY DISEASE W (ACUTE) EXACERBATION Status: Acute (4) DM type 2 (diabetes mellitus, type 2) Status: Chronic Qualifiers: Diabetes mellitus assistant terminal manager insulin use: without mcfp use (5) CAD (coronary artery disease) Code(s): I25.10 - ATHSCL HEART DISEASE OF [place] CORONARY ARTERY W/O ANG PCTRS Status: Chronic Qualifiers: Coronary Disease-Associated Artery/Lesion type: [place] artery [place] vs. transplanted heart: [place] heart Associated angina: without angina Qualified Code(s): I25.10 - Atherosclerotic heart disease of [place] coronary artery without angina pectoris (6) Dyslipidemia Code(s): E78.5 - HYPERLIPIDEMIA, UNSPECIFIED Status: Chronic (7) H/O: CVA (cerebrovascular accident) Code(s): Z86.73 - PRSNL HX OF TIA (TIA), AND CEREB INFRC W/O RESID DEFICITS Status: Chronic (8) Hypertension Code(s): I10 - ESSENTIAL (PRIMARY) HYPERTENSION Status: Chronic Qualifiers: Hypertension type: essential hypertension Qualified Code(s): I10 - Essential (primary) hypertension - Plan is on lasix, nebs, prednisone, doxy continue levodopa/carbidopa, toprol xl, metformin, asp, lipitor and zetia hemostable, mobilize with PT echo shows ef of 45%, apical hypokinesis dc plan to swing bed in [place] in am Hemostable is mobilizing well with PT
[2019-03-15] MEDS: Ezetimibe 10 MG TAB PO SCH (20:40)
[2019-03-15] MEDS: DULoxetine 60 MG CAP PO SCH (20:40)
[2019-03-15] MEDS: Atorvastatin Calcium 10 MG TAB PO SCH (20:41)
[2019-03-15] MEDS: Aspirin Chewable 81 MG TAB PO SCH (20:41)
[2019-03-16 07:29] LABS: Anion Gap 12 mmol/L (10-20); BUN (Urea Nitrogen) 16 mg/dL (8.4-25.7); Calc. Creatinine Clearance 92 mL/min (70-130); Calcium 9.1 mg/dL (7.8-10.44); Carbon Dioxide 28 mmol/L (23-31); Chloride 99 mmol/L (98-107); Estimated GFR-MDRD Greater than 90; Glucose 151 mg/dL (83-110); Magnesium 1.8 mg/dL (1.6-2.6); Potassium 3.6 mmol/L (3.5-5.1); Sodium 135 mmol/L (136-145)
[2019-03-16] MEDS: guaiFENesin ER 600 MG TAB PO SCH (08:21)
[2019-03-16] MEDS: predniSONE 20 MG TAB PO SCH (08:22)
[2019-03-16] MEDS: Docusate 100 MG CAP PO SCH (08:23)
[2019-03-16] MEDS: Furosemide 40 MG TAB PO SCH (08:23)
[2019-03-16] MEDS: metFORMIN 500 MG TAB PO SCH ×2 (08:23→16:11)
[2019-03-16] MEDS: Amlodipine 5 MG TAB PO SCH (08:24)
[2019-03-16] MEDS: Famotidine 20 MG TAB PO SCH (08:25)
[2019-03-16] MEDS: LEVODOPA PO SCH ×2 (08:26→14:54)
[2019-03-16] MEDS: CARBIDOPA PO SCH ×2 (08:26→14:54)
[2019-03-16] MEDS: Doxycycline 100 MG CAP PO SCH (08:29)
[2019-03-16] MEDS: Enoxaparin Sodium 40 MG/0.4 ML SYRINGE SC SCH (08:30)
[2019-03-16] MEDS: Polyethylene Glycol 3350 17 GM Packet PO SCH (08:30)
--- NOTE | 2019-03-16 09:12 | PRG ---
DATE OF SERVICE: 03/16/2019 SUBJECTIVE: The patient is doing better and is going to skilled rehab today. OBJECTIVE: VITAL SIGNS: Temperature 98.0, pulse 60, respirations 20, O2 saturation 95%, and blood pressure 131/73. HEENT: Unremarkable. NECK: No adenopathy or JVD. CHEST: Clear to auscultation. CARDIAC: S1 and S2. Regular. ABDOMEN: Soft. EXTREMITIES: No edema. LABORATORY DATA: Sodium 135, potassium 3.6, BUN 16, creatinine 0.7, and glucose 151. ASSESSMENT: 1. Chronic obstructive pulmonary disease with exacerbation. 2. Mildly depressed ejection fraction. PLAN: He is medically stable for discharge to halfway. No further recommendations. He will see me in the office in about a month. Job ID: [id number]
[2019-03-16 11:52] VITALS: BP 131/75; TEMP 98.1
--- NOTE | 2019-03-17 13:40 | DIS ---
DATE OF ADMISSION: 03/12/2019 DATE OF DISCHARGE: 03/16/[address]POSITION: [facility] in [place]. PRIMARY DISCHARGE DIAGNOSES: Acute congestive heart failure exacerbation with systolic and diastolic dysfunction; acute respiratory failure with hypoxia on arrival with patient initially on BiPAP, now is off all oxygen; chronic obstructive pulmonary disease exacerbation, resolved; diabetes mellitus, type 2; coronary artery disease; dyslipidemia; history of cerebrovascular accident; hypertension. PROCEDURES DONE DURING HOSPITALIZATION: Chest x-ray done on the day of admission showed bilateral pulmonary vascular congestion. Echo with 2D Doppler showed EF of 40% to 45%. There was severe apical hypokinesis. RV systolic pressures were 31 mmHg. Dilated aortic root at 4 cm. Sputum cultures grew strep pneumo, sensitive to all antibiotics. Blood cultures x2, no growth. Respiratory virus panel, PCR was negative. H and H 14 and 44, platelet count 159, white count of 7.9, MCV 97. Discharge BUN and creatinine 16 and 0.6. Free T4 0.8, free T3 1.65, TSH 1.1. BNP 468. DISCHARGE MEDICATIONS: 1. Prednisone 40 mg p.o. daily for another 3 days and to discontinue. 2. K-Dur 10 mEq p.o. daily. 3. Toprol-XL 50 mg p.o. q.p.m. 4. DuoNeb q.6 hourly. 5. Mucinex 1200 mg p.o. twice daily. 6. Lasix 40 mg p.o. daily. 7. Doxycycline 100 mg p.o. twice daily for another 3 days. 8. Colace 100 mg twice daily. 9. Pitavastatin 4 mg p.o. daily. 10. Protonix 40 mg daily. 11. Multivitamin one tablet once daily. 12. Metformin 500 mg p.o. twice daily. 13. Zetia 5 mg p.o. at bedtime. 14. Cymbalta 60 mg p.o. at bedtime. 15. Carbidopa/levodopa 10/100 mg three times daily. 16. Symbicort inhaler 160/4.5 mcg 2 puffs twice daily. 17. Aspirin 81 mg p.o. at bedtime. 18. Norvasc 5 mg p.o. daily. ALLERGIES: TO CELECOXIB, PEANUT AND SOY. INPATIENT CONSULT: Dr. Lawrence/Dr. Win for Pulmonology. Dr. Polanco for Cardiology. BRIEF COURSE DURING HOSPITALIZATION: The patient initially came to ER with complaints of shortness of breath and confusion. He was found to be in acute respiratory failure with hypoxia and was placed on BiPAP. He has had acute CHF exacerbation with systolic and diastolic dysfunction. He was admitted to [facility]. The patient has had slow weaning of his BiPAP/CPAP. He was gently diuresed during his stay and has done remarkably well. He is actively participating with physical therapy. His acute encephalopathy completely resolved within 24 hours and the patient was at his baseline cognitive status. He was evaluated by Dr. Polanco and Dr. Win during his stay here. Due to deconditioning, he is being discharged to [facility] prior to going home. A total of 35 minutes was spent on discharge plan. Please note, I have seen and examined the patient on the day of discharge. Job ID: [id number]
== END 2019-03-16 17:40 | disposition swing bed (61) | DRG 291 ==
LOC: ERS 13:47 → IMCU/EMU 15:27 → T4-A 03-15 17:29
PROVIDERS: ADMIT Internal Medicine; ATTEND Internal Medicine
PROC: 5A09457 Assistance with Respiratory Ventilation, 24-96 Consecutive Hours, Continuous Positive Airway Pressure (ICD-10-PCS; principal; 2019-03-12)
PROC: 3E02340 Introduction of Influenza Vaccine into Muscle, Percutaneous Approach (ICD-10-PCS; 2019-03-12)
PROC: 3E0234Z Introduction of Serum, Toxoid and Vaccine into Muscle, Percutaneous Approach (ICD-10-PCS; 2019-03-12)
DX: I11.0 Hypertensive heart disease with heart failure (principal); J96.01 Acute respiratory failure with hypoxia; G93.41 Metabolic encephalopathy; J44.1 Chronic obstructive pulmonary disease with (acute) exacerbation; I48.20 Chronic atrial fibrillation, unspecified; I50.43 Acute on chronic combined systolic (congestive) and diastolic (congestive) heart failure; Z23 Encounter for immunization; H40.9 Unspecified glaucoma; E11.9 Type 2 diabetes mellitus without complications; K21.9 Gastro-esophageal reflux disease without esophagitis; E78.5 Hyperlipidemia, unspecified; E78.00 Pure hypercholesterolemia, unspecified; I25.10 Atherosclerotic heart disease of native coronary artery without angina pectoris; G20 Parkinson's disease; F43.10 Post-traumatic stress disorder, unspecified; Z86.73 Personal history of transient ischemic attack (TIA), and cerebral infarction without residual deficits; Z90.49 Acquired absence of other specified parts of digestive tract; Z95.0 Presence of cardiac pacemaker; Z87.891 Personal history of nicotine dependence; Z91.010 Allergy to peanuts; Z91.018 Allergy to other foods; Z79.84 Long term (current) use of oral hypoglycemic drugs; Z79.82 Long term (current) use of aspirin; Z79.51 Long term (current) use of inhaled steroids; Z79.899 Other long term (current) drug therapy; Z88.6 Allergy status to analgesic agent
CPT/HCPCS: 36415; 36416; 71045; 80048; 80053; 82550; 82553; 82805; 83605; 83735; 83880; 84439; 84443; 84481; 84484; 85025; 85060; 85379; 85610; 85730; 87040; 87070; 87077; 87186; 87205; 87633; 87804; 90471; 90670; 93005; 93306; 94640; 94644; 94660; 94760; 96361; 96365; 96366; 96375; 99292; G0009; J1650; J1940; J1956; J2920; J2930; J7512; J7611; J7620

== ENCOUNTER 2019-04-05 14:56 | Outpatient (CLI) | payer MEDICARE, BC ==
--- NOTE | 2019-04-05 15:09 | RAD ---
EXAM: Chest Two Views 04/05/2019 3:05 PM HISTORY: Dyspnea COMPARISON: Prior chest radiograph dated August 19, 2017 and 03/12/2019 FINDINGS: Heart: The endovascular coils seen within the region of the left atrial appendage is stable. Mild car diomegaly is stable. Pulmonary vessels: Normal. Costophrenic angles: Clear. Lungs: No acute airspace consolidation. Pneumothorax: None. Osseous structures:Intact. There is scattered degenerative and osteoarthritic change present. Additional findings: Dual-lead pacemaker is unchanged. IMPRESSION: No significant acute intrathoracic disease.
== END 2019-04-05 14:57 | disposition home or self-care (01) ==
LOC: RAD 14:56
PROVIDERS: ATTEND Internal Medicine Critical Care Medicine
DX: R06.00 Dyspnea, unspecified (principal)
CPT/HCPCS: 71046

== ENCOUNTER 2019-05-16 09:55 | Outpatient (CLI) | payer MEDICARE, BC ==
--- NOTE | 2019-05-16 10:12 | RAD ---
CHEST 2 VIEWS: COMPARISON: 04/05/2019. HISTORY: Dyspnea. FINDINGS: Stable metallic coil projects over the left heart border. Stable left-sided transvenous pacemaker. Calcified AP window and bilateral hilar lymph nodes are redemonstrated. Atherosclerosis of the aorta. Normal cardiac silhouette. Chronic lung parenchymal changes, without masses or consolidation. No pneumothorax or acute osseous a bnormalities. IMPRESSION: Atherosclerosis. No acute cardiopulmonary process. Transcribed Date/Time: 05/16/2019 10:59 AM
== END 2019-05-16 09:56 | disposition home or self-care (01) ==
LOC: RAD 09:55
PROVIDERS: ATTEND Internal Medicine Critical Care Medicine
DX: R06.00 Dyspnea, unspecified (principal); I70.90 Unspecified atherosclerosis
CPT/HCPCS: 71046

== ENCOUNTER 2020-07-14 03:49 | Emergency (ER) | payer MEDICARE, BC ==
[2020-07-14] MEDS ORDERED: Lidocaine Viscous Sol 2% 15 ml UD Cup ONE (04:11)
== END 2020-07-14 04:36 | disposition home or self-care (01) ==
LOC: ERS 03:49
DX: R13.10 Dysphagia, unspecified (principal); I48.91 Unspecified atrial fibrillation; J44.9 Chronic obstructive pulmonary disease, unspecified; E11.39 Type 2 diabetes mellitus with other diabetic ophthalmic complication; H42 Glaucoma in diseases classified elsewhere; K21.9 Gastro-esophageal reflux disease without esophagitis; E78.5 Hyperlipidemia, unspecified; E78.00 Pure hypercholesterolemia, unspecified; I25.10 Atherosclerotic heart disease of native coronary artery without angina pectoris; I10 Essential (primary) hypertension; Z87.891 Personal history of nicotine dependence

== ENCOUNTER 2020-07-14 19:39 | Inpatient (IN) | payer MEDICARE, BC ==
[~2020-07-14 19:39] MED LIST: Iopamidol-370 76% 500 ML 1 ML ONE
[2020-07-14 20:30] LABS: #Basophils 0.1 thou/uL (0.0-0.2); #Eosinphils 0.1 thou/uL (0.0-0.7); #Lymphocytes 1.5 thou/uL (1.20-3.40); #Monocytes 0.6 thou/uL (0.11-0.59); #Neutrophils 3.4 thou/uL (1.40-6.50); %Basophils 1.3 % (0.0-1.0); %Lymphocytes 26.1 % (21.0-51.0); %Monocytes 10.7 % (0.0-10.0); %Neutrophils 59.9 % (42.0-75.0); Hemoglobin 14.5 g/dL (14.0-18.0); Mean Corpuscular HGB CONC 33.6 g/dL (32.0-36.0); Mean Corpuscular Hemoglobin 33.1 pg (27.0-31.0); Mean Corpuscular Volume 98.7 fL (78.0-98.0); Mean Platelet Volume 8.4 fL (7.4-10.4); Platelet Count 127 thou/uL (130-400); RBC Distribution Width 12.8 % (11.5-14.5); Red Blood Cell (RBC) Count 4.37 mill/uL (4.70-6.10); White Blood Cell (WBC) Count 5.6 thou/uL (4.8-10.8)
[2020-07-14 20:51] LABS: INR-International Normal Ratio 1.1; PTT 28.5 sec (22.9-36.1); Prothrombin Time 13.9 sec (12.0-14.7)
[2020-07-14 20:52] LABS: ALT (SGPT) 18 U/L (8-55); AST (SGOT) 20 U/L (5-34); Albumin 3.7 g/dL (3.4-4.8); Alkaline Phosphatase 61 U/L (40-110); Anion Gap 13 mmol/L (10-20); BUN (Urea Nitrogen) 10 mg/dL (8.4-25.7); Bilirubin, Total 0.5 mg/dL (0.2-1.2); Calc. Creatinine Clearance 0 mL/min (70-130); Calcium 8.7 mg/dL (7.8-10.44); Carbon Dioxide 22 mmol/L (23-31); Chloride 104 mmol/L (98-107); Globulin 2.2 g/dL (2.4-3.5); Glucose 164 mg/dL (83-110); Potassium 4.1 mmol/L (3.5-5.1); Protein, Total 5.9 g/dL (5.8-8.1); Sodium 135 mmol/L (136-145)
[2020-07-15] MEDS ORDERED: Dextrose 50% Abboject 50 ML SYRINGE SLOW IVP PRN (01:43)
[2020-07-15] MEDS ORDERED: Dextrose 5% in Water 1,000 ML IV PRN (01:43)
[2020-07-15] MEDS: Acetaminophen 325 MG TAB PO PRN (01:56)
[2020-07-15 03:13] VITALS: BMI 29.9
[2020-07-15] MEDS: traMADol HCl 50 MG TAB PO PRN ×2 (03:59→21:05)
[2020-07-15 05:38] LABS: SARS-CoV-2 PCR by NAA Not Detected (NotDetected)
[2020-07-15 07:04] LABS: Phosphorus 2.7 mg/dL (2.3-4.7)
[2020-07-15 07:09] LABS: Anion Gap 13 mmol/L (10-20); BUN (Urea Nitrogen) 7 mg/dL (8.4-25.7); Calc. Creatinine Clearance 106 mL/min (70-130); Calcium 8.4 mg/dL (7.8-10.44); Carbon Dioxide 20 mmol/L (23-31); Chloride 106 mmol/L (98-107); Glucose 159 mg/dL (83-110); Magnesium 1.7 mg/dL (1.6-2.6); Potassium 3.7 mmol/L (3.5-5.1); Sodium 135 mmol/L (136-145)
[2020-07-15] MEDS ORDERED: Furosemide 40 MG TAB PO SCH (07:30)
[2020-07-15 08:57] LABS: #Basophils 0.1 thou/uL (0.0-0.2); #Eosinphils 0.1 thou/uL (0.0-0.7); #Lymphocytes 1.3 thou/uL (1.20-3.40); #Monocytes 0.7 thou/uL (0.11-0.59); #Neutrophils 5.5 thou/uL (1.40-6.50); %Basophils 0.8 % (0.0-1.0); %Eosinophils 1.6 % (0.0-10.0); %Lymphocytes 16.6 % (21.0-51.0); %Monocytes 9.4 % (0.0-10.0); %Neutrophils 71.7 % (42.0-75.0); Hemoglobin 13.8 g/dL (14.0-18.0); MDiff Complete? YES; Mean Corpuscular HGB CONC 33.3 g/dL (32.0-36.0); Mean Corpuscular Hemoglobin 32.5 pg (27.0-31.0); Mean Corpuscular Volume 97.5 fL (78.0-98.0); Mean Platelet Volume 8.4 fL (7.4-10.4); Platelet Count 118 thou/uL (130-400); Platelet Morphology Comment Appears Decreased; RBC Distribution Width 12.6 % (11.5-14.5); Red Blood Cell (RBC) Count 4.24 mill/uL (4.70-6.10); White Blood Cell (WBC) Count 7.6 thou/uL (4.8-10.8)
[2020-07-15] MEDS ORDERED: Non-Formulary Item 1 EACH (Carbidopa/Levodopa [Carbidopa-Levo 10-100 Mg Odt] 1 EACH Tab.R PO SCH (09:00)
[2020-07-15] MEDS ORDERED: Enoxaparin Sodium 40 MG/0.4 ML SYRINGE SC SCH (09:00)
[2020-07-15] MEDS ORDERED: Magnesium 2 GM/50 ML 2 GM in Premix Bag 1 BAG IVPB SCH (10:30)
[2020-07-15] MEDS: Carbidopa/Levodopa 10-100 mg Tablet PO SCH ×3 (10:40→21:07)
[2020-07-15] MEDS ORDERED: Labetalol HCl 100 MG/20 ML VIAL SLOW IVP PRN (12:42)
[2020-07-15] MEDS ORDERED: D5 1/2 NS w/20 mEq KCL 1,000 ML IV SCH (12:45)
[2020-07-15] MEDS: Nystatin 500,000 UNITS/5 ML UDCUP SSW SCH ×3 (13:23→21:09)
[2020-07-15] MEDS ORDERED: Albuterol Sulfate 2.5 mg/3 ml Neb NEB PRN (16:42)
[2020-07-15] MEDS: D5 1/2 NS w/20 mEq KCL 1,000 ML IV SCH (17:28)
[2020-07-15] MEDS ORDERED: Artificial Tear Sol 15 ML BOT EA EYE PRN (17:28)
[2020-07-15] MEDS: Mometasone 200 MCG/Formoterol 5 MCG 120 PUFF INHALER INH SCH (19:06)
[2020-07-15] MEDS ORDERED: BACILLUS COAGULANS PO SCH (21:00)
[2020-07-15] MEDS: Multivitamin W/ Minerals 1 TAB PO SCH (21:07)
[2020-07-15] MEDS: Ezetimibe 10 MG TAB PO SCH (21:07)
[2020-07-15] MEDS: DULoxetine 60 MG CAP PO SCH (21:08)
[2020-07-15] MEDS: Aspirin Chewable 81 MG TAB PO SCH (21:08)
[2020-07-15] MEDS: HumaLOG 300 UNITS/3 ML VIAL SC PRN (21:46)
[2020-07-16] MEDS: Mometasone 200 MCG/Formoterol 5 MCG 120 PUFF INHALER INH SCH ×2 (06:28→18:21)
[2020-07-16] MEDS: D5 1/2 NS w/20 mEq KCL 1,000 ML IV SCH ×3 (07:18→23:39)
[2020-07-16] MEDS: Atorvastatin Calcium 20 MG TAB PO SCH (08:26)
[2020-07-16] MEDS: Nystatin 500,000 UNITS/5 ML UDCUP SSW SCH ×4 (08:26→21:48)
[2020-07-16] MEDS: Carbidopa/Levodopa 10-100 mg Tablet PO SCH ×3 (08:29→21:47)
[2020-07-16] MEDS ORDERED: Mineral Oil ENEMA PR SCH (11:00)
[2020-07-16] MEDS: traMADol HCl 50 MG TAB PO PRN (11:42)
[2020-07-16] MEDS: HumaLOG 300 UNITS/3 ML VIAL SC PRN ×2 (12:43→16:42)
[2020-07-16] MEDS: Acetaminophen 325 MG TAB PO PRN (14:04)
[2020-07-16] MEDS: Senokot S 8.6-50 MG TAB PO PRN (16:42)
[2020-07-16] MEDS: Ezetimibe 10 MG TAB PO SCH (21:45)
[2020-07-16] MEDS: Multivitamin W/ Minerals 1 TAB PO SCH (21:46)
[2020-07-16] MEDS: Aspirin Chewable 81 MG TAB PO SCH (21:46)
[2020-07-16] MEDS: DULoxetine 60 MG CAP PO SCH (21:47)
[2020-07-17] MEDS: Mometasone 200 MCG/Formoterol 5 MCG 120 PUFF INHALER INH SCH ×2 (07:42→18:31)
[2020-07-17] MEDS: traMADol HCl 50 MG TAB PO PRN (09:03)
[2020-07-17] MEDS: Carbidopa/Levodopa 10-100 mg Tablet PO SCH ×3 (09:03→21:19)
[2020-07-17] MEDS: Atorvastatin Calcium 20 MG TAB PO SCH (09:03)
[2020-07-17] MEDS: D5 1/2 NS w/20 mEq KCL 1,000 ML IV SCH ×2 (09:03→18:05)
[2020-07-17] MEDS: Nystatin 500,000 UNITS/5 ML UDCUP SSW SCH ×4 (09:03→21:24)
[2020-07-17] MEDS: HumaLOG 300 UNITS/3 ML VIAL SC PRN ×3 (12:17→21:15)
[2020-07-17] MEDS: Senokot S 8.6-50 MG TAB PO PRN (17:41)
[2020-07-17] MEDS: Aspirin Chewable 81 MG TAB PO SCH (21:19)
[2020-07-17] MEDS: Ezetimibe 10 MG TAB PO SCH (21:22)
[2020-07-17] MEDS: DULoxetine 60 MG CAP PO SCH (21:22)
[2020-07-17] MEDS: Multivitamin W/ Minerals 1 TAB PO SCH (21:24)
[2020-07-17] MEDS ORDERED: Metoprolol Tartrate 25 MG TAB PO SCH (22:00)
[2020-07-18] MEDS: traMADol HCl 50 MG TAB PO PRN (04:06)
[2020-07-18] MEDS: HumaLOG 300 UNITS/3 ML VIAL SC PRN (05:43)
[2020-07-18] MEDS: Mometasone 200 MCG/Formoterol 5 MCG 120 PUFF INHALER INH SCH (07:11)
[2020-07-18] MEDS ORDERED: Metoprolol Tartrate 25 MG TAB PO SCH ×2 (09:00)
[2020-07-18] MEDS: Carbidopa/Levodopa 10-100 mg Tablet PO SCH ×2 (09:25→15:40)
[2020-07-18] MEDS: Nystatin 500,000 UNITS/5 ML UDCUP SSW SCH ×2 (09:25→15:08)
[2020-07-18] MEDS: Atorvastatin Calcium 20 MG TAB PO SCH (09:25)
[2020-07-18 11:28] VITALS: BP 121/67; TEMP 97.9
[2020-07-18] MEDS: D5 1/2 NS w/20 mEq KCL 1,000 ML IV SCH (15:08)
== END 2020-07-18 16:01 | disposition swing bed (61) | DRG 57 ==
LOC: EDBD → ERS 19:39 → T4-B 07-15 00:01 → OBSVTOIN 07-16 15:05
PROVIDERS: ADMIT Student in an Organized Health Care Education/Training Program; ATTEND Internal Medicine
PROC: 0CJS8ZZ Inspection of Larynx, Via Natural or Artificial Opening Endoscopic (ICD-10-PCS; principal; 2020-07-16)
DX: I69.391 Dysphagia following cerebral infarction (principal); E87.1 Hypo-osmolality and hyponatremia; I69.354 Hemiplegia and hemiparesis following cerebral infarction affecting left non-dominant side; R13.10 Dysphagia, unspecified; E11.9 Type 2 diabetes mellitus without complications; G20 Parkinson's disease; K21.9 Gastro-esophageal reflux disease without esophagitis; J44.9 Chronic obstructive pulmonary disease, unspecified; I48.91 Unspecified atrial fibrillation; Z20.822 Contact with and (suspected) exposure to COVID-19; M40.209 Unspecified kyphosis, site unspecified; M19.011 Primary osteoarthritis, right shoulder; M75.101 Unspecified rotator cuff tear or rupture of right shoulder, not specified as traumatic; Z88.8 Allergy status to other drugs, medicaments and biological substances; Z88.1 Allergy status to other antibiotic agents; Z91.010 Allergy to peanuts; Z90.49 Acquired absence of other specified parts of digestive tract; Z95.0 Presence of cardiac pacemaker; Z87.891 Personal history of nicotine dependence; Z79.82 Long term (current) use of aspirin
CPT/HCPCS: 36415; 36416; 70496; 70498; 80048; 80053; 83735; 84100; 85025; 85610; 85730; 87635; 93005; 93970; 96365; 99283; G0378; J1815; J3475; J3480; Q9967; U0003; U0005

== ENCOUNTER 2020-09-24 12:57 | Outpatient (CLI) | payer MEDICARE, BC ==
[2020-09-24 21:02] LABS: SARS-CoV-2 PCR by NAA Not Detected (NotDetected)
== END 2020-09-24 12:58 | disposition home or self-care (01) ==
LOC: LABBT 12:57
PROVIDERS: ATTEND Student in an Organized Health Care Education/Training Program
DX: Z01.812 Encounter for preprocedural laboratory examination (principal); Z20.822 Contact with and (suspected) exposure to COVID-19
CPT/HCPCS: U0003; U0005; 87635

== ENCOUNTER 2020-09-26 13:17 | Outpatient (CLI) | payer MEDICARE, BC | END 2020-09-26 13:18 | disposition home or self-care (01) | LOC: EDBD | PROVIDERS: ATTEND Student in an Organized Health Care Education/Training Program | DX: I69.391 Dysphagia following cerebral infarction (principal); R13.12 Dysphagia, oropharyngeal phase; R63.3 Feeding difficulties; R13.13 Dysphagia, pharyngeal phase | CPT/HCPCS: 74230 ==

== ENCOUNTER 2020-10-15 09:58 | Outpatient (CLI) | payer MEDICARE, BC ==
[2020-10-15 10:27] LABS: Estimated GFR-MDRD - POC Greater than 90
== END 2020-10-15 09:59 | disposition home or self-care (01) ==
LOC: BICCT 09:58
PROVIDERS: ATTEND Surgery
DX: R19.04 Left lower quadrant abdominal swelling, mass and lump (principal); K59.00 Constipation, unspecified; K57.30 Diverticulosis of large intestine without perforation or abscess without bleeding; J98.4 Other disorders of lung; E27.8 Other specified disorders of adrenal gland; N28.1 Cyst of kidney, acquired
CPT/HCPCS: 74177; 82565

== ENCOUNTER 2021-01-11 12:33 | Emergency (ER) | payer MEDICARE, BC ==
[2021-01-11 13:46] LABS: #Lymphocytes 1.3 thou/uL (1.20-3.40); #Monocytes 0.5 thou/uL (0.11-0.59); #Neutrophils 4.9 thou/uL (1.40-6.50); %Basophils 0.7 % (0.0-1.0); %Eosinophils 1.4 % (0.0-10.0); %Lymphocytes 19.4 % (21.0-51.0); %Monocytes 7.5 % (0.0-10.0); Hemoglobin 14.6 g/dL (14.0-18.0); Mean Corpuscular HGB CONC 32.3 g/dL (32.0-36.0); Mean Platelet Volume 8.3 fL (7.4-10.4); Platelet Count 139 thou/uL (130-400); RBC Distribution Width 12.5 % (11.5-14.5); Red Blood Cell (RBC) Count 4.55 mill/uL (4.70-6.10); White Blood Cell (WBC) Count 6.8 thou/uL (4.8-10.8)
[2021-01-11 13:47] LABS: #Eosinphils 0.1 thou/uL (0.0-0.7)
[2021-01-11 14:04] LABS: ALT (SGPT) 7 U/L (8-55); AST (SGOT) 16 U/L (5-34); Albumin 3.7 g/dL (3.4-4.8); Alkaline Phosphatase 58 U/L (40-110); Anion Gap 12 mmol/L (10-20); BUN (Urea Nitrogen) 11 mg/dL (8.4-25.7); Bilirubin, Total 0.6 mg/dL (0.2-1.2); Calc. Creatinine Clearance 0 mL/min (70-130); Carbon Dioxide 25 mmol/L (23-31); Chloride 103 mmol/L (98-107); Globulin 2.2 g/dL (2.4-3.5); Glucose 161 mg/dL (83-110); Potassium 4.3 mmol/L (3.5-5.1); Protein, Total 5.9 g/dL (5.8-8.1); Sodium 136 mmol/L (136-145)
== END 2021-01-11 16:43 | disposition home or self-care (01) ==
LOC: ERS 12:33
DX: M62.81 Muscle weakness (generalized) (principal); R00.1 Bradycardia, unspecified
CPT/HCPCS: 36415; 71045; 80053; 83880; 84443; 84484; 85025; 93005